=== PATIENT | female | born 1965 | race Caucasian/White ===

== ENCOUNTER 2017-03-17 14:02 | Emergency (ER) | payer BC ==
--- NOTE | 2017-03-17 15:04 | EDM.PDOC ---
[id number]: PAINS DOWN BACK AROUND TO FRONT OF RT LEG Time Seen by Provider: 03/17/17 15:04 Source of Information: Reports: Patient, Old records, RN, RN notes reviewed History Limitations: Reports: No limitations - History of Present Illness INITIAL COMMENTS - FREE TEXT/NARRATIVE: Complaining of low back pain without injury. Onset about 1 week ago[address] Patient saw Dr. Guzman in clinic and had x-ray and treated with Tramadol without relief. Pain radiates down front of right thigh to the knee. Denies loss of bowel or bladder control, saddle numbness or lower extremity weakness. Quality: Reports: Ache Severity: severe Improves with: Reports: None Worsens with: Reports: None Associated Symptoms: Reports: Denies symptoms - Related Data Allergies/ADRs: Allergies Allergy/AdvReac Type Severity Reaction Status Date / Time codeine AdvReac Unknown Nausea and Verified 03/17/17 14:21 Vomiting Home Meds: Home Meds Glucosamine Sulfate 2KCl [Glucosamine] 1,000 mg PO BID 06/07/14 [History] Lisinopril 20 mg PO BID 11/27/15 [History] NIFEdipine [Procardia XL] 30 mg PO DAILY 09/07/16 [History] Ca Carbonate/Vitamin D3/Vit K [Calcium + D Soft Chewable Tab] 1 each PO DAILY [History] Insulin Glarg,Human.Rec.Analog [Lantus] 28 unit SQ DAILY 03/17/17 [History] traMADol [Ultram] 50 mg PO Q8H 03/17/17 [History] Past Medical History HEENT History: Reports: Impaired vision Other HEENT History: wears glasses Cardiovascular History: Reports: Hypertension Respiratory History: Reports: None Gastrointestinal History: Reports: None Genitourinary History: Reports: Pyelonephritis 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 Musculoskeletal History: Reports: Arthritis Neurological History: Reports: None Psychiatric History: Reports: None Endocrine/Metabolic History: Reports: None Hematologic History: Reports: None Immunologic History: Reports: None Oncologic (Cancer) History: Reports: None Dermatologic History: Reports: None - Infectious Disease History Infectious Disease History: Reports: Chicken pox - Past Surgical History Head Surgeries/Procedures: Reports: None Social & Family History - Family History Family Medical History: Noncontributory - Tobacco Use Smoking Status *Q: Never Smoker Years of Tobacco use: 28 Used Tobacco, but Quit: Yes Month Tobacco Last Used: 5 years Second Hand Smoke Exposure: No - Caffeine Use Caffeine Use: Reports: Soda - Alcohol Use Days Per Week of Alcohol Use: 0 - Recreational Drug Use Recreational Drug Use: No - Living Situation & Occupation Living situation: Reports: , with family Occupation: employed ED ROS GENERAL - Review of Systems Review Of Systems: ROS reveals no pertinent complaints other than HPI. ED EXAM,LOWER BACK PAIN/INJURY - Physical Exam Exam: See Below Exam Limited By: No limitations General Appearance: obese Neck: full range of motion Respiratory/Chest: no respiratory distress, lungs clear, normal breath sounds, no accessory muscle use, chest non-tender Cardiovascular: normal peripheral pulses, regular rate, rhythm, no edema, no gallop, no JVD, no murmur, no rub GI/Abdominal: other (benign obese abdomen) Back Exam: other (decreased lumbar ROM. Paraspinal lumbar tenderness with muscle spasms. ) Neurological: alert, normal mood/affect, normal dorsiflexion, CN II-XII intact, normal plantar flexion, normal gait, normal reflexes, no motor/sensory deficits , oriented x 3 Psychiatric: normal affect, normal mood Skin Exam: Warm, Dry, Intact, Normal color, No rash Course - Vital Signs Last Recorded V/S: Last Vital Signs Temp 36.6 C 03/17/17 15:06 Pulse 98 03/17/17 15:06 Resp 16 03/17/17 15:06 BP 106/55 L 03/17/17 15:06 Pulse Ox 100 03/17/17 15:06 - Orders/Labs/Meds Meds: Medications Discontinued Medications Generic Name Dose Route Start Last Admin Trade Name Priya PRN Reason Stop Dose Admin Hydrocodone Bitart/Acetaminophen 1 tab 03/17/17 15:14 03/17/17 15:29 Jackson 325-10 Mg PO 03/17/17 15:15 1 tab ONETIME ONE Administration Dexamethasone 8 mg 03/17/17 15:13 03/17/17 15:29 Dexamethasone IM 03/17/17 15:14 8 mg ONETIME ONE Administration Gabapentin 300 mg 03/17/17 15:13 03/17/17 15:37 Neurontin PO 03/17/17 15:14 300 mg ONETIME ONE Administration Departure - Departure Time of Disposition: 16:03 Disposition: Home, Self-Care 01 Condition: fair Clinical Impression: Acute right lumbar radiculopathy Instructions: Lumbosacral Radiculopathy Referrals: Jordy Guzman MD [Primary Care Provider] - Forms: ED Department Discharge Additional Instructions: Gabapentin 300mg *do not drive or work while under the influence of this medication. Decadron 4mg. Follow with Dr. Guzman in the next 2 or 3 days for recheck.
[2017-03-17 15:07] VITALS: BP 106/55
[2017-03-17] MEDS ORDERED: Dexamethasone 4 MG/ML SDV IM ONE (15:13)
[2017-03-17] MEDS ORDERED: Gabapentin 300 MG Cap PO ONE (15:13)
[2017-03-17] MEDS ORDERED: Acetaminophen/HYDROcodone 325-10 MG Tab PO ONE (15:14)
== END 2017-03-17 16:15 | disposition home or self-care (01) ==
LOC: DL.ED 14:02
DX: M54.16 Radiculopathy, lumbar region (principal); I10 Essential (primary) hypertension; M19.90 Unspecified osteoarthritis, unspecified site; Z88.6 Allergy status to analgesic agent
CPT/HCPCS: 96372; 99283; A9270; J1100

== ENCOUNTER 2017-11-16 05:07 | Emergency (ER) | payer BC ==
[2017-11-16] MEDS ORDERED: Ondansetron 4 MG Tab.DIS PO ONE (05:08)
[2017-11-16] MEDS ORDERED: Sodium Chloride 0.9% 1,000 ML IV ONE (05:19)
[2017-11-16] MEDS ORDERED: Ondansetron 4 MG/2 ML SDV IV ONE (05:23)
--- NOTE | 2017-11-16 05:53 | EDM.PDOC ---
ED HPI GENERAL MEDICAL PROBLEM - General Chief Complaint: Gastrointestinal Problem Stated Complaint: FLU [id number] Time Seen by Provider: 11/16/17 05:20 Source of Information: Reports: Patient History Limitations: Reports: No Limitations - History of Present Illness INITIAL COMMENTS - FREE TEXT/NARRATIVE: c/o nausea and vomiting since yesterday 2:30pm. Estimates at least 20 times. Diarrhea yesterday, none since last jacob. Diabetic, has not checked blood sugars , Feeling achy Denies fever or chills. Abdominal Pain Score (Numeric/FACES): 6 - Related Data Allergies Allergy/AdvReac Type Severity Reaction Status Date / Time codeine AdvReac Unknown Nausea and Verified 11/16/17 05:20 Vomiting Home Meds: Home Meds Glucosamine Sulfate 2KCl [Glucosamine] 1,000 mg PO BID 06/07/14 [History] Lisinopril 20 mg PO BID 11/27/15 [History] NIFEdipine [Procardia XL] 30 mg PO DAILY 09/07/16 [History] Ca Carbonate/Vitamin D3/Vit K [Calcium + D Soft Chewable Tab] 1 each PO DAILY [History] Insulin Glarg,Human.Rec.Analog [Lantus] 28 unit SQ DAILY 03/17/17 [History] traMADol [Ultram] 50 mg PO Q8H 03/17/17 [History] Gabapentin [Neurontin] 300 mg PO TID 11/16/17 [History] Past Medical History HEENT History: Reports: Impaired Vision Other HEENT History: wears glasses Cardiovascular History: Reports: Hypertension Respiratory History: Reports: None Gastrointestinal History: Reports: None Genitourinary History: Reports: Pyelonephritis [employer]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 Musculoskeletal History: Reports: Arthritis Neurological History: Reports: None Psychiatric History: Reports: None Endocrine/Metabolic History: Reports: None Hematologic History: Reports: None Immunologic History: Reports: None Oncologic (Cancer) History: Reports: None Dermatologic History: Reports: None - Infectious Disease History Infectious Disease History: Reports: Chicken Pox - Past Surgical History Head Surgeries/Procedures: Reports: None Social & Family History - Family History Family Medical History: Noncontributory - Tobacco Use Smoking Status *Q: Never Smoker Years of Tobacco use: 28 Used Tobacco, but Quit: Yes Month Tobacco Last Used: 5 years Second Hand Smoke Exposure: No - Caffeine Use Caffeine Use: Reports: Soda - Alcohol Use Days Per Week of Alcohol Use: 0 - Recreational Drug Use Recreational Drug Use: No - Living Situation & Occupation Living situation: Reports: , with Family Occupation: Employed ED ROS GENERAL - Review of Systems Review Of Systems: See Below Constitutional: Reports: Malaise. Denies: Fever, Chills HEENT: Reports: No Symptoms Respiratory: Reports: No Symptoms Cardiovascular: Reports: No Symptoms GI/Abdominal: Reports: Diarrhea, Nausea, Vomiting : Reports: No Symptoms Musculoskeletal: Reports: Other (myalgia) Skin: Reports: No Symptoms Neurological: Reports: No Symptoms ED EXAM, GI/ABD - Physical Exam Exam: See Below Exam Limited By: No Limitations General Appearance: Alert, Mild Distress, Obese Eyes: Bilateral: EOMI Ears: Normal External Exam, Normal TMs Nose: Normal Inspection Throat/Mouth: Normal Inspection, Normal Oropharynx Head: Atraumatic, Normocephalic Neck: Normal Inspection Respiratory/Chest: No Respiratory Distress Cardiovascular: Normal Peripheral Pulses, Regular Rate, Rhythm GI/Abdominal Exam: Normal Bowel Sounds, Soft, Non-Tender Back Exam: Normal Inspection Extremities: Normal Inspection, Normal Range of Motion Neurological: Alert, Oriented, Normal Cognition Psychiatric: Normal Affect, Normal Mood Course - Vital Signs Last Recorded V/S: Last Vital Signs Temp 99.8 F 11/16/17 06:29 Pulse 101 H 11/16/17 06:29 Resp 16 11/16/17 06:29 BP 121/64 11/16/17 06:29 Pulse Ox 95 11/16/17 06:29 - Orders/Labs/Meds Labs: Laboratory Tests 11/16/17 11/16/17 11/16/17 Range/Units 05:25 05:25 05:38 WBC 8.8 (5.0-10.0) 10^3/uL RBC 4.98 (4.2-5.4) 10^6/uL Hgb 14.1 (12.0-16.0) g/dL Hct 41.6 (37.0-47.0) % MCV 83.5 (80-100) fL MCH 28.3 (27.0-34.0) pg MCHC 33.9 (33.0-35.0) g/dL Plt Count 143 L (150-450) 10^3/uL Neut % (Auto) 95.5 H (42.2-75.2) % Lymph % (Auto) 2.3 L (20.5-50.1) % [place] % (Auto) 2.1 (2-8) % Eos % (Auto) 0.0 L (1.0-3.0) % Baso % (Auto) 0.1 (0.0-1.0) % Sodium 135 (135-145) mmol/L Potassium 4.0 (3.6-5.0) mmol/L Chloride 101 (101-111) mmol/L Carbon Dioxide 23.0 (21.0-31.0) mmol/L Anion Gap 15.0 BUN 29 H (7-18) mg/dL Creatinine 0.7 (0.6-1.3) mg/dL Est Cr Clr Drug Dosing 79.34 mL/min Estimated GFR (MDRD) > 60 BUN/Creatinine Ratio 41.42 Glucose 244 H (74-105) mg/dL Calcium 9.4 (8.4-10.2) mg/dl Total Bilirubin 1.2 H (0.2-1.0) mg/dL AST 24 (10-42) IU/L ALT 19 (10-60) IU/L Alkaline Phosphatase 74 (42-121) IU/L Total Protein 7.3 (6.7-8.2) g/dl Albumin 4.3 (3.2-5.5) g/dl Globulin 3.0 Albumin/Globulin Ratio 1.43 Urine Color Yellow (YELLOW) Urine Appearance Clear (CLEAR) Urine pH 7.5 (5.0-9.0) Ur Specific [place] 1.015 (1.005-1.030) Urine Protein 100 H (NEGATIVE) Urine Glucose (UA) 100 H (NEGATIVE) Urine Ketones 15 H (NEGATIVE) Urine Occult Blood Negative (NEGATIVE) Urine Nitrite Negative (NEGATIVE) Urine Bilirubin Negative (NEGATIVE) Urine Urobilinogen 0.2 (0.2-1.0) mg/dL Ur Leukocyte Esterase Trace H (NEGATIVE) Urine RBC 0-5 /HPF Urine WBC 10-20 H (0-5/HPF) /HPF Ur Epithelial Cells Few /HPF Urine Bacteria Moderate H (0-FEW/HPF) /HPF Ketones Negative Meds: Medications Discontinued Medications Generic Name Dose Route Start Last Admin Trade Name Freq PRN Reason Stop Dose Admin Famotidine 20 mg 11/16/17 06:22 11/16/17 06:32 Pepcid IVPUSH 11/16/17 06:23 20 mg ONETIME ONE Administration Sodium Chloride 1,000 mls @ 999 mls/hr 11/16/17 05:19 11/16/17 05:26 Normal Saline IV 11/16/17 06:19 999 mls/hr .BOLUS ONE Administration Ondansetron HCl 4 mg 11/16/17 05:23 11/16/17 05:27 Zofran IV 11/16/17 05:24 4 mg ONETIME ONE Administration - Re-Assessments/Exams Free Text/Narrative Re-Assessment/Exam: 11/16/17 06:34 No episodes of vomiting, Reports feeling better, Departure - Departure Time of Disposition: 06:34 Disposition: Home, Self-Care 01 Condition: Fair Clinical Impression: Gastroenteritis, Dehydration - Discharge Information Instructions: Dehydration, Adult, [id number] Forms: ED Department Discharge Additional Instructions: rest few small sips water and if tolerating then gradual increase in amount, advance diet as tolerated Monitor blood sugars Follow up as needed
[2017-11-16 06:17] LABS: CHLORIDE,CL 101 mmol/L (101-111); SODIUM,NA 135 mmol/L (135-145)
[2017-11-16] MEDS ORDERED: Famotidine 20 MG/2 ML SDV IVPUSH ONE (06:22)
[2017-11-16 06:30] VITALS: BP 121/64
[2017-11-16] MEDS ORDERED: Ondansetron 4 MG Tab.DIS ONE (06:35)
== END 2017-11-16 06:44 | disposition home or self-care (01) ==
LOC: DL.ED 05:07
DX: K52.9 Noninfective gastroenteritis and colitis, unspecified (principal); E86.0 Dehydration; I10 Essential (primary) hypertension; Z88.5 Allergy status to narcotic agent; Z79.899 Other long term (current) drug therapy; Z79.4 Long term (current) use of insulin
CPT/HCPCS: 36415; 80053; 81001; 82009; 85025; 87804; 96361; 96374; 96375; 99284; J2405; J7030; A9270-GY; S0028

== ENCOUNTER 2018-05-01 12:09 | Emergency (ER) | payer OTHER, BC ==
--- NOTE | 2018-05-01 14:29 | CR ---
Clinical history: 52-year-old obese female injured left knee in a fall. Pain. Interpretation: Chondromalacia patella and marginal spur formation dorsal aspect of the patella. Asymmetric narrowing of the medial joint compartment with associated bony eburnation and hypertrophic marginal/intercondylar tibial spine spurs. No significant suprapatellar bursal effusion and no sign of acute left knee fracture, dislocation or radiopaque loose joint body. CONCLUSION: Osteoarthritis. No acute fracture left knee.
--- NOTE | 2018-05-01 14:34 | EDM.PDOC ---
ED HPI GENERAL MEDICAL PROBLEM - General Chief Complaint: Lower Extremity Injury/Pain Stated Complaint: W/COMP, LT KNEE, SOB Time Seen by Provider: 05/01/18 13:35 Source of Information: Reports: Patient, RN, RN Notes Reviewed History Limitations: Reports: No Limitations - History of Present Illness INITIAL COMMENTS - FREE TEXT/NARRATIVE: Patient works at [employer]. She fell on her left knee. She was short of breath prior to arrival. She did not hit her head. No other complaints. She is walking with a cane. Onset: Today Location: Reports: Lower Extremity, Left Quality: Reports: Ache Severity: Severe Improves with: Reports: None Worsens with: Reports: None Associated Symptoms: Reports: No Other Symptoms Left Knee Pain Score (Numeric/FACES): 3 - Related Data Allergies Allergy/AdvReac Type Severity Reaction Status Date / Time codeine AdvReac Unknown Nausea and Verified 11/16/17 05:20 Vomiting Home Meds: Home Meds Glucosamine Sulfate 2KCl [Glucosamine] 1,000 mg PO BID 06/07/14 [History] Lisinopril 20 mg PO BID 11/27/15 [History] NIFEdipine [Procardia XL] 30 mg PO DAILY 09/07/16 [History] Ca Carbonate/Vitamin D3/Vit K [Calcium + D Soft Chewable Tab] 1 each PO DAILY [History] Insulin Glarg,Human.Rec.Analog [Lantus] 28 unit SQ DAILY 03/17/17 [History] traMADol [Ultram] 50 mg PO Q8H 03/17/17 [History] Gabapentin [Neurontin] 300 mg PO TID 11/16/17 [History] Past Medical History HEENT History: Reports: Impaired Vision Other HEENT History: wears glasses Cardiovascular History: Reports: Hypertension Respiratory History: Reports: None Gastrointestinal History: Reports: None Genitourinary History: Reports: Pyelonephritis [employer] History: Reports: None Musculoskeletal History: Reports: Arthritis Neurological History: Reports: None Psychiatric History: Reports: Anxiety, Depression Endocrine/Metabolic History: Reports: Diabetes, Type II Hematologic History: Reports: None Immunologic History: Reports: None Oncologic (Cancer) History: Reports: None Dermatologic History: Reports: None - Infectious Disease History Infectious Disease History: Reports: Chicken Pox - Past Surgical History Head Surgeries/Procedures: Reports: None HEENT Surgical History: Reports: Adenoidectomy, Tonsillectomy Female Surgical History: Reports: Section Social & Family History - Family History Family Medical History: Noncontributory - Tobacco Use Smoking Status *Q: Never Smoker - Caffeine Use Caffeine Use: Reports: Soda - Recreational Drug Use Recreational Drug Use: No - Living Situation & Occupation Living situation: Reports: , with Family Occupation: Employed Review of Systems - Review of Systems Review Of Systems: ROS reveals no pertinent complaints other than HPI. ED EXAM, GENERAL - Physical Exam Exam: See Below Exam Limited By: No Limitations General Appearance: Alert, WD/WN, No Apparent Distress Eye Exam: Bilateral Eye: Normal Inspection Ears: Normal External Exam, Normal Canal, Hearing Grossly Normal, Normal TMs Nose: Normal Inspection, Normal Mucosa, No Blood Throat/Mouth: Normal Inspection, Normal Lips, Normal Teeth, Normal Gums, Normal Oropharynx, Normal Voice, No Airway Compromise Head: Atraumatic, Normocephalic Neck: Normal Inspection, Supple, Non-Tender, Full Range of Motion Respiratory/Chest: No Respiratory Distress, Lungs Clear, Normal Breath Sounds, No Accessory Muscle Use, Chest Non-Tender Cardiovascular: Normal Peripheral Pulses, Regular Rate, Rhythm, No Edema, No Gallop, No JVD, No Murmur, No Rub GI/Abdominal: Normal Bowel Sounds, Soft, Non-Tender, No Organomegaly, No Distention, No Abnormal Bruit, No Mass (Female) Exam: Deferred Rectal (Female) Exam: Deferred Back Exam: Normal Inspection, Full Range of Motion, NT Neurological: Alert, Oriented, CN II-XII Intact, Normal Cognition, Normal Gait, Normal Reflexes, No Motor/Sensory Deficits Psychiatric: Normal Affect, Normal Mood Skin Exam: Warm, Dry, Intact, Normal Color, No Rash Lymphatic: No Adenopathy Course - Vital Signs Last Recorded V/S: Last Vital Signs Temp 97.4 F 05/01/18 14:34 Pulse 80 05/01/18 14:34 Resp 18 05/01/18 14:34 BP 122/55 L 05/01/18 14:34 Pulse Ox 97 05/01/18 14:34 - Radiology Interpretation Free Text/Narrative:: X-ray left knee: Osteoarthritis. No acute fracture left knee. See rad report. Departure - Departure Time of Disposition: 14:29 Disposition: Home, Self-Care 01 Condition: Fair Clinical Impression: Arthritis of left knee Fall Qualifiers: Encounter type: initial encounter Qualified Code(s): W19.XXXA - Unspecified fall, initial encounter - Discharge Information Instructions: Osteoarthritis Referrals: Jordy Guzman MD [Primary Care Provider] - Forms: ED Department Discharge Additional Instructions: May use ibuprofen as directed for pain Elevate, alternate heat and ice as tolerated Use cane for walking Follow up with your primary care facility if no improvement
[2018-05-01 14:35] VITALS: BP 122/55
== END 2018-05-01 14:50 | disposition home or self-care (01) ==
LOC: DL.ED 12:09
DX: M17.12 Unilateral primary osteoarthritis, left knee (principal); I10 Essential (primary) hypertension; E11.9 Type 2 diabetes mellitus without complications; F32.9 Major depressive disorder, single episode, unspecified; F41.9 Anxiety disorder, unspecified; Z88.5 Allergy status to narcotic agent; Z79.899 Other long term (current) drug therapy; Z79.4 Long term (current) use of insulin; W18.30XA Fall on same level, unspecified, initial encounter
CPT/HCPCS: 73564-LT; 99282

== ENCOUNTER 2018-11-26 16:14 | Emergency (ER) | payer BC ==
[2018-11-26 16:24] VITALS: BP 125/63
--- NOTE | 2018-11-26 16:44 | CR ---
Clinical history: 53-year-old female chest pain and shortness of breath. Dilatation: No acute new cardiopulmonary abnormality since 08 October 2018 comparison film. Normal cardiac silhouette. No cephalization of flow, signs of alveolar edema or dependent pleural effusion. No new lung mass, hilar lymphadenopathy or focal lobar pneumonia. No atelectasis/collapse. No pneumothorax or free subdiaphragmatic air. CONCLUSION: Negative exam.
[2018-11-26] MEDS ORDERED: Lactated Ringers 1,000 ML IV ONE (16:47)
[2018-11-26] MEDS ORDERED: Aspirin 81 MG Tab.Chew PO ONE (16:53)
[2018-11-26 16:56] LABS: ANION GAP 17.1; CHLORIDE,CL 99 mmol/L (101-111); SODIUM,NA 137 mmol/L (135-145)
[2018-11-26] MEDS: Sodium Chloride 0.9% 10 ML Syringe FLUSH PRN ×2 (16:59→18:04)
[2018-11-26] MEDS ORDERED: Morphine 2 MG/ML Syringe IVPUSH ONE (17:38)
[2018-11-26] MEDS ORDERED: GI Cocktail Oral Solution 30 ML PO ONE (17:52)
[2018-11-26] MEDS ORDERED: Iopamidol 755 Mg/ML 100 ML Bottle IVPUSH ONE (19:24)
--- NOTE | 2018-11-26 21:22 | EDM.PDOC ---
<Tono English - Last Filed: 11/26/18 21:18> ED HPI GENERAL MEDICAL PROBLEM - General Chief Complaint: Chest Pain Stated Complaint: PAINS IN CHEST, SOB, TIGHTENING Time Seen by Provider: 11/26/18 16:40 chest Pain Score (Numeric/FACES): 7 headache Pain Score (Numeric/FACES): 4 - Related Data Allergies Allergy/AdvReac Type Severity Reaction Status Date / Time codeine AdvReac Unknown Nausea and Verified 11/26/18 17:02 Vomiting Home Meds: Home Meds Glucosamine Sulfate 2KCl [Glucosamine] 1,000 mg PO BID 06/07/14 [History] NIFEdipine [Procardia XL] 30 mg PO DAILY 09/07/16 [History] Ca Carbonate/Vitamin D3/Vit K [Calcium + D Soft Chewable Tab] 1 each PO DAILY [History] Insulin Glarg,Human.Rec.Analog [Lantus] 28 unit SQ DAILY 03/17/17 [History] Gabapentin [Neurontin] 300 mg PO TID 11/16/17 [History] DULoxetine HCl [Duloxetine HCl] 60 mg PO DAILY 10/08/18 [History] Liraglutide [Victoza] 6 units SQ DAILY 10/08/18 [History] Lisinopril 20 mg PO DAILY 10/08/18 [History] atorvaSTATin Calcium [Atorvastatin Calcium] 10 mg PO DAILY 10/08/18 [History] Past Medical History HEENT History: Reports: Impaired Vision Other HEENT History: wears glasses Cardiovascular History: Reports: High Cholesterol, Hypertension Respiratory History: Reports: None Gastrointestinal History: Reports: None Genitourinary History: Reports: Pyelonephritis 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 Musculoskeletal History: Reports: Arthritis Neurological History: Reports: Neuropathy, Peripheral Psychiatric History: Reports: Anxiety, Depression Endocrine/Metabolic History: Reports: Diabetes, Type II, Obesity/BMI 30+ Hematologic History: Reports: None Immunologic History: Reports: None Oncologic (Cancer) History: Reports: None Dermatologic History: Reports: None - Infectious Disease History Infectious Disease History: Reports: Chicken Pox - Past Surgical History Head Surgeries/Procedures: Reports: None HEENT Surgical History: Reports: Adenoidectomy, Tonsillectomy Cardiovascular Surgical History: Reports: None Female Surgical History: Reports: Section Social & Family History - Family History Family Medical History: Noncontributory - Tobacco Use Smoking Status *Q: Never Smoker - Caffeine Use Caffeine Use: Reports: Soda - Recreational Drug Use Recreational Drug Use: No - Living Situation & Occupation Living situation: Reports: , with Family Occupation: Employed Course - Vital Signs Last Recorded V/S: Last Vital Signs Temp 36.4 C 11/26/18 16:22 Pulse 107 H 11/26/18 16:22 Resp 20 11/26/18 16:22 BP 125/63 11/26/18 16:22 Pulse Ox 100 11/26/18 16:22 - Orders/Labs/Meds Orders: Active Orders 24 hr Category Date Time Status EKG 12 Lead [EKG Documentation Completion] [] URGENT Care 11/26/18 16:21 Active EKG 12 Lead [EKG Documentation Completion] [] URGENT Care 11/26/18 20:31 Active Peripheral IV Care [] . DIRECTED Care 11/26/18 16:22 Active Peripheral IV Insertion Adult [OM.PC] Stat Oth 11/26/18 16:21 Ordered Labs: Laboratory Tests 11/26/18 11/26/18 11/26/18 Range/Units 16:29 16:29 16:29 WBC 6.1 (5.0-10.0) 10^3/uL RBC 4.35 (4.2-5.4) 10^6/uL Hgb 13.0 (12.0-16.0) g/dL Hct 38.6 (37.0-47.0) % MCV 88.7 (80-100) fL MCH 29.9 (27.0-34.0) pg MCHC 33.7 (33.0-35.0) g/dL Plt Count 160 (150-450) 10^3/uL Neut % (Auto) 73.6 (42.2-75.2) % Lymph % (Auto) 18.4 L (20.5-50.1) % Rosebud % (Auto) 7.8 (2-8) % Eos % (Auto) 0.0 L (1.0-3.0) % Baso % (Auto) 0.2 (0.0-1.0) % D-Dimer, Quantitative < 100 (0-400) ng/mL Sodium 137 (135-145) mmol/L Potassium 4.1 (3.6-5.0) mmol/L Chloride 99 L (101-111) mmol/L Carbon Dioxide 25.0 (21.0-31.0) mmol/L Anion Gap 17.1 BUN 22 H (7-18) mg/dL Creatinine 1.1 (0.6-1.3) mg/dL Est Cr Clr Drug Dosing 49.90 mL/min Estimated GFR (MDRD) 52 BUN/Creatinine Ratio 20.00 Glucose 123 H (74-105) mg/dL Calcium 9.3 (8.4-10.2) mg/dl Total Bilirubin 0.9 (0.2-1.0) mg/dL AST 21 (10-42) IU/L ALT 22 (10-60) IU/L Alkaline Phosphatase 85 (42-121) IU/L Troponin I < 0.02 (0.00-0.02) ng/ml Total Protein 6.7 (6.7-8.2) g/dl Albumin 4.1 (3.2-5.5) g/dl Globulin 2.6 Albumin/Globulin Ratio 1.58 11/26/18 Range/Units 20:37 WBC (5.0-10.0) 10^3/uL RBC (4.2-5.4) 10^6/uL Hgb (12.0-16.0) g/dL Hct (37.0-47.0) % MCV (80-100) fL MCH (27.0-34.0) pg MCHC (33.0-35.0) g/dL Plt Count (150-450) 10^3/uL Neut % (Auto) (42.2-75.2) % Lymph % (Auto) (20.5-50.1) % Rosebud % (Auto) (2-8) % Eos % (Auto) (1.0-3.0) % Baso % (Auto) (0.0-1.0) % D-Dimer, Quantitative (0-400) ng/mL Sodium (135-145) mmol/L Potassium (3.6-5.0) mmol/L Chloride (101-111) mmol/L Carbon Dioxide (21.0-31.0) mmol/L Anion Gap BUN (7-18) mg/dL Creatinine (0.6-1.3) mg/dL Est Cr Clr Drug Dosing mL/min Estimated GFR (MDRD) BUN/Creatinine Ratio Glucose (74-105) mg/dL Calcium (8.4-10.2) mg/dl Total Bilirubin (0.2-1.0) mg/dL AST (10-42) IU/L ALT (10-60) IU/L Alkaline Phosphatase (42-121) IU/L Troponin I < 0.02 (0.00-0.02) ng/ml Total Protein (6.7-8.2) g/dl Albumin (3.2-5.5) g/dl Globulin Albumin/Globulin Ratio Meds: Medications Discontinued Medications Generic Name Dose Route Start Last Admin Trade Name Freq PRN Reason Stop Dose Admin Al Hydroxide/Mg Hydroxide 30 ml 11/26/18 17:52 11/26/18 18:02 Gi Cocktail PO 11/26/18 17:53 30 ml ONETIME ONE Administration Aspirin 324 mg 11/26/18 16:53 11/26/18 16:56 Aspirin PO 11/26/18 16:54 324 mg ONETIME ONE Administration Lactated Ringer's 1,000 mls @ 1,000 mls/hr 11/26/18 16:47 11/26/18 16:56 Ringers, Lactated IV 11/26/18 17:46 1,000 mls/hr .BOLUS ONE Administration Iopamidol 100 ml 11/26/18 19:24 11/26/18 19:28 Isovue-370 (76%) IVPUSH 11/26/18 19:25 100 ml ONETIME ONE Administration Morphine Sulfate 2 mg 11/26/18 17:38 11/26/18 18:02 Morphine IVPUSH 11/26/18 17:39 2 mg ONETIME ONE Administration Sodium Chloride 10 ml 11/26/18 16:22 11/26/18 18:04 Saline Flush FLUSH 10 ml ASDIRECTED PRN Administration Keep Vein Open - Re-Assessments/Exams Free Text/Narrative Re-Assessment/Exam: 11/26/18 21:19 results discussed with pt who is feeling much better now. likes to go home. did notice GI cocktail produced most effect. Departure - Departure Time of Disposition: 21:19 Disposition: Home, Self-Care 01 Condition: Good Clinical Impression: Atypical chest pain GERD (gastroesophageal reflux disease) Qualifiers: Esophagitis presence: with esophagitis Qualified Code(s): K21.0 - Gastro- esophageal reflux disease with esophagitis Instructions: Food Choices for Gastroesophageal Reflux Disease, Adult Referrals: PCP,None [Primary Care Provider] - Forms: ED Department Discharge Additional Instructions: 1) recheck if there is any change or concern 2) follow up with family doctor for pulmonary nodule follow up - My Orders Last 24 Hours: My Active Orders 11/26/18 16:21 EKG 12 Lead [EKG Documentation Completion] [RC] URGENT Peripheral IV Insertion Adult [OM.PC] Stat 11/26/18 16:22 Peripheral IV Care [RC] . DIRECTED - Assessment/Plan Last 24 Hours: My Active Orders 11/26/18 16:21 EKG 12 Lead [EKG Documentation Completion] [RC] URGENT Peripheral IV Insertion Adult [OM.PC] Stat 11/26/18 16:22 Peripheral IV Care [RC] . DIRECTED <Salas Lenz - Last Filed: 11/27/18 11:52> ED HPI GENERAL MEDICAL PROBLEM - History of Present Illness INITIAL COMMENTS - FREE TEXT/NARRATIVE: patient comes emergency department today with complaints of tightness in her chest and difficulty breathing. Just prior to arrival the patient was going to get into her car when all of a sudden she had some difficulty breathing and tightness in her chest. No syncope. No lightheadedness. No palpitations. She feels very cold and clammy. No fever no chills. No cough or congestion. No abdominal pain. NAUSEA NO VOMITING> She feels very fatigued and tired. She has little energy. No hematuria dysuria or urinary frequency. She is not a smoker. She has not had any sedentary lifestyle recently to include riding in a car or plane for an extended period of time. 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 ED ROS GENERAL - Review of Systems Review Of Systems: ROS reveals no pertinent complaints other than HPI. ED EXAM, GENERAL - Physical Exam Exam: See Below Exam Limited By: No Limitations General Appearance: Alert, WD/WN Nose: Normal Inspection, Normal Mucosa Throat/Mouth: Normal Inspection, Normal Lips, Normal Oropharynx Head: Atraumatic, Normocephalic Neck: Normal Inspection Respiratory/Chest: No Respiratory Distress, Lungs Clear, Normal Breath Sounds, No Accessory Muscle Use, Chest Non-Tender Cardiovascular: Normal Peripheral Pulses, Regular Rate, Rhythm, No Murmur Peripheral Pulses: 2+: Radial (L), Radial (R), Posterior Tibial (L), Posterior Tibial (R), Dorsalis Pedis (L), Dorsalis Pedis (R) GI/Abdominal: Normal Bowel Sounds, Soft, Non-Tender, No Organomegaly Back Exam: Normal Inspection Extremities: Normal Inspection, Normal Range of Motion, Non-Tender, No Pedal Edema, Normal Capillary Refill Neurological: Alert, Oriented, CN II-XII Intact, Normal Cognition, Normal Reflexes, No Motor/Sensory Deficits Psychiatric: Normal Mood, Flat Affect Skin Exam: Intact, No Rash, Cool, Diaphoretic, Pallor Lymphatic: No Adenopathy EKG INTERPRETATION EKG Date: 11/26/18 Time: 16:21 Rhythm: NSR Rate (Beats/Min): 84 Pablo: Normal P-Wave: Present QRS: Normal ST-T: Normal QT: Normal Course - Re-Assessments/Exams Free Text/Narrative Re-Assessment/Exam: 11/26/18 nitial EKG was negative. Although with her pain just developing I will repeat a couple more EKGs to ensure that she does not develop any changes. Repeat EKG at [address] elevation or depression and is unchanged from the previous one. Although she does not want to take the aspirin due to her history of thrombocytopenia I think with her clinical presentation and physical findings that one dose of aspirin is paramount at this time and she is comfortable with that plan and her platelets are appropriate. I am able to try any nitroglycin she is has a blood pressure in the 100s. Her initial troponin is negative as well as her d-dimer. She was given a GI cocktail with about 50% improvement in her chest tightness. She was also given some morphine and felt much better. Despite her negative d-dimer with her vital signs and complaints and physical exam I did complete a CT PE that was negative for any pulmonary embolism. Repeart troponin was negative and care transfer to DR. English who eventually discharged the patient.
== END 2018-11-26 21:40 | disposition home or self-care (01) ==
LOC: DL.ED 16:14
DX: K21.0 Gastro-esophageal reflux disease with esophagitis (principal); R07.89 Other chest pain; E78.00 Pure hypercholesterolemia, unspecified; I10 Essential (primary) hypertension; E11.42 Type 2 diabetes mellitus with diabetic polyneuropathy; Z79.4 Long term (current) use of insulin; Z88.5 Allergy status to narcotic agent; Z79.899 Other long term (current) drug therapy
CPT/HCPCS: 36415; 71045; 71260; 80053; 84484; 85025; 85379; 93005; 96361; 96374; 99285; A9270; J2270; J7120; Q9967

== ENCOUNTER 2018-12-28 10:18 | Emergency (ER) | payer BC ==
[2018-12-28 10:25] VITALS: BP 129/41
[2018-12-28] MEDS ORDERED: predniSONE 20 MG Tab PO ONE (10:31)
--- NOTE | 2018-12-28 10:40 | EDM.PDOC ---
ED HPI GENERAL MEDICAL PROBLEM - General Chief Complaint: Neuro Symptoms/Deficits Stated Complaint: FACE NUMB Time Seen by Provider: 12/28/18 10:30 Source of Information: Reports: Patient History Limitations: Reports: No Limitations - History of Present Illness INITIAL COMMENTS - FREE TEXT/NARRATIVE: This 53 yo female patient reports to the ED with right sided facial numbness/ weakness that started yesterday at 1100. The patient reports she does not have any other symptoms. The patient reports no coordination or balance issues at this time. Onset Date: 12/27/18 Onset Time: 11:00 Duration: Constant Location: Reports: Face (right sided) Quality: Reports: Other Severity: Severe Improves with: Reports: None Worsens with: Reports: None Associated Symptoms: Reports: No Other Symptoms - Related Data Allergies Allergy/AdvReac Type Severity Reaction Status Date / Time codeine AdvReac Unknown Nausea and Verified 11/26/18 17:02 Vomiting Home Meds: Home Meds Glucosamine Sulfate 2KCl [Glucosamine] 1,000 mg PO BID 06/07/14 [History] NIFEdipine [Procardia XL] 30 mg PO DAILY 09/07/16 [History] Ca Carbonate/Vitamin D3/Vit K [Calcium + D Soft Chewable Tab] 1 each PO DAILY [History] Insulin Glarg,Human.Rec.Analog [Lantus] 28 unit SQ DAILY 03/17/17 [History] Gabapentin [Neurontin] 300 mg PO TID 11/16/17 [History] DULoxetine HCl [Duloxetine HCl] 60 mg PO DAILY 10/08/18 [History] Liraglutide [Victoza] 6 units SQ DAILY 10/08/18 [History] Lisinopril 20 mg PO DAILY 10/08/18 [History] atorvaSTATin Calcium [Atorvastatin Calcium] 10 mg PO DAILY 10/08/18 [History] Past Medical History HEENT History: Reports: Impaired Vision Other HEENT History: wears glasses Cardiovascular History: Reports: High Cholesterol, Hypertension Respiratory History: Reports: None Gastrointestinal History: Reports: None Genitourinary History: Reports: Pyelonephritis 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 Musculoskeletal History: Reports: Arthritis Neurological History: Reports: Neuropathy, Peripheral Psychiatric History: Reports: Anxiety, Depression Endocrine/Metabolic History: Reports: Diabetes, Type II, Obesity/BMI 30+ Hematologic History: Reports: None Immunologic History: Reports: None Oncologic (Cancer) History: Reports: None Dermatologic History: Reports: None - Infectious Disease History Infectious Disease History: Reports: Chicken Pox - Past Surgical History Head Surgeries/Procedures: Reports: None HEENT Surgical History: Reports: Adenoidectomy, Tonsillectomy Cardiovascular Surgical History: Reports: None Female Surgical History: Reports: Section Social & Family History - Family History Family Medical History: Noncontributory - Tobacco Use Smoking Status *Q: Never Smoker - Caffeine Use Caffeine Use: Reports: Soda - Recreational Drug Use Recreational Drug Use: No - Living Situation & Occupation Living situation: Reports: , with Family Occupation: Employed ED ROS GENERAL - Review of Systems Review Of Systems: ROS reveals no pertinent complaints other than HPI. ED EXAM, NEURO - Physical Exam Exam: See Below Exam Limited By: No Limitations General Appearance: Alert, WD/WN, Moderate Distress Eye Exam: Bilateral Eye: EOMI, Normal Inspection, PERRL Ears: Normal External Exam, Normal Canal, Hearing Grossly Normal, Normal TMs Nose: Normal Inspection, Normal Mucosa, No Blood Throat/Mouth: Normal Inspection, Normal Lips, Normal Teeth, Normal Gums, Normal Oropharynx, Normal Voice, No Airway Compromise Head Exam: Other (right side facial numbness and weakness) Neck: Normal Inspection, Supple, Non-Tender, Full Range of Motion Respiratory/Chest: No Respiratory Distress, Lungs Clear, Normal Breath Sounds, No Accessory Muscle Use, Chest Non-Tender Cardiovascular: Normal Peripheral Pulses, Regular Rate, Rhythm, No Edema, No Gallop, No JVD, No Murmur, No Rub GI/Abdominal: Normal Bowel Sounds (Female) Exam: Deferred Rectal (Female) Exam: Deferred Neurological: Alert, Normal Mood/Affect, Normal Dorsiflexion, Oriented x 3, Other (right sided facial weakness (facial droop)) Back Exam: Normal Inspection, Full Range of Motion, NT Extremities: Normal Inspection, Normal Range of Motion, Non-Tender, No Pedal Edema, Normal Capillary Refill Psychiatric: Normal Affect, Normal Mood Skin Exam: Warm, Dry, Intact, Normal Color, No Rash Course - Vital Signs Last Recorded V/S: Last Vital Signs Temp 35.8 C 12/28/18 10:22 Pulse 98 12/28/18 10:22 Resp 16 12/28/18 10:22 BP 129/41 L 12/28/18 10:22 Pulse Ox 100 12/28/18 10:22 - Orders/Labs/Meds Meds: Medications Discontinued Medications Generic Name Dose Route Start Last Admin Trade Name Priya PRN Reason Stop Dose Admin Prednisone 60 mg 12/28/18 10:31 12/28/18 10:39 Prednisone PO 12/28/18 10:32 60 mg ONETIME ONE Administration Departure - Departure Time of Disposition: 10:35 Disposition: Home, Self-Care 01 Condition: Fair Clinical Impression: Amado palsy - Discharge Information *PRESCRIPTION DRUG MONITORING PROGRAM REVIEWED*: Not Applicable *COPY OF PRESCRIPTION DRUG MONITORING REPORT IN PATIENT ZUHAIR: Not Applicable Instructions: Amado Palsy, Adult Forms: ED Department Discharge Care Plan Goals: The patient was advised of the examination results during the visit. The patient was given an oral dose of Prednisone (60 mg) while in the ED. The patient was discharged with a script for Prednisone to take 60 mg by mouth daily for 4 days (starting 12/29/18), 50 mg by mouth for 1 day, 40 mg by mouth for 1 day, 30 mg by mouth for 1 day, 20 mg by mouth for 1 day and 10 mg by mouth for 1 day. The patient was encouraged to place a patch on her eye at night for protection. If the patient develops a rash over the area, the patient should either return to the ED or visit her primary care facility. If the patient has any additional symptoms or concerns, the patient should either return to the emergency department or return to the emergency department.
== END 2018-12-28 10:45 | disposition home or self-care (01) ==
LOC: DL.ED 10:18
DX: G51.0 Bell's palsy (principal); I10 Essential (primary) hypertension; E11.9 Type 2 diabetes mellitus without complications; Z79.4 Long term (current) use of insulin; E66.9 Obesity, unspecified; Z98.890 Other specified postprocedural states; Z79.899 Other long term (current) drug therapy; Z88.5 Allergy status to narcotic agent
CPT/HCPCS: 99283; A9270

== ENCOUNTER 2019-02-08 11:57 | Emergency (ER) | payer BC ==
--- NOTE | 2019-02-08 12:19 | EDM.PDOC ---
ED HPI GENERAL MEDICAL PROBLEM - General Chief Complaint: Syncope Stated Complaint: DIZZY NOT FEELING GOOD Time Seen by Provider: 02/08/19 12:18 Source of Information: Reports: Patient, Old Records, RN, RN Notes Reviewed History Limitations: Reports: No Limitations - History of Present Illness INITIAL COMMENTS - FREE TEXT/NARRATIVE: Pt presents to ER from home by POV with c/o onset last evening of intermittent episodes of shortness of breath with mild cough/urge to cough, and lightheadedness/dizziness. Pt admits to occasional slight heaviness of the chest. Denies chest pain, fever, chills, nausea, vomiting, wheezing, orthopnea, edema, leg/calf pain, or chest pain. She had breast reduction surgery about 2.5 weeks ago. Denies syncope, but admits to recurrent near-syncope. Onset: Gradual Onset Date: 02/07/19 Duration: Getting Worse, Intermittent, Recurring, Waxing/Waning Location: Reports: Chest Quality: Reports: Pressure Severity: Moderate Improves with: Reports: None Worsens with: Reports: Other (Activity/Exertion) Associated Symptoms: Reports: No Other Symptoms - Related Data Allergies Allergy/AdvReac Type Severity Reaction Status Date / Time codeine AdvReac Unknown Nausea and Verified 02/08/19 12:20 Vomiting Home Meds: Home Meds Glucosamine Sulfate 2KCl [Glucosamine] 1,000 mg PO BID 06/07/14 [History] NIFEdipine [Procardia XL] 30 mg PO DAILY 09/07/16 [History] Ca Carbonate/Vitamin D3/Vit K [Calcium + D Soft Chewable Tab] 1 each PO DAILY [History] Insulin Glarg,Human.Rec.Analog [Lantus] 28 unit SQ DAILY 03/17/17 [History] Gabapentin [Neurontin] 300 mg PO TID 11/16/17 [History] DULoxetine HCl [Duloxetine HCl] 60 mg PO DAILY 10/08/18 [History] Liraglutide [Victoza] 6 units SQ DAILY 10/08/18 [History] Lisinopril 20 mg PO BID 10/08/18 [History] atorvaSTATin Calcium [Atorvastatin Calcium] 10 mg PO DAILY 10/08/18 [History] Past Medical History HEENT History: Reports: Impaired Vision Other HEENT History: wears glasses Cardiovascular History: Reports: High Cholesterol, Hypertension Respiratory History: Reports: None Gastrointestinal History: Reports: None Genitourinary History: Reports: Pyelonephritis AD[employer] SOC[employer] WORKER History: Reports: None Musculoskeletal History: Reports: Arthritis Neurological History: Reports: Neuropathy, Peripheral Psychiatric History: Reports: Anxiety, Depression Endocrine/Metabolic History: Reports: Diabetes, Type II, Obesity/BMI 30+ Hematologic History: Reports: None Immunologic History: Reports: None Oncologic (Cancer) History: Reports: None Dermatologic History: Reports: None - Infectious Disease History Infectious Disease History: Reports: Chicken Pox - Past Surgical History Head Surgeries/Procedures: Reports: None HEENT Surgical History: Reports: Adenoidectomy, Tonsillectomy Cardiovascular Surgical History: Reports: None Female Surgical History: Reports: Breast Reduction (January 2019), Section Social & Family History - Family History Family Medical History: Noncontributory - Tobacco Use Smoking Status *Q: Never Smoker - Caffeine Use Caffeine Use: Reports: Soda - Living Situation & Occupation Living situation: Reports: , with Family Occupation: Employed ED ROS GENERAL - Review of Systems Review Of Systems: See Below - Physical Exam Exam: See Below Exam Limited By: No Limitations General Appearance: Alert, No Apparent Distress, Obese Eye Exam: Bilateral Eye: EOMI, Normal Inspection, PERRL Ears: Hearing Grossly Normal Nose: Normal Inspection, Normal Mucosa, No Blood Throat/Mouth: Normal Inspection, Normal Lips, Normal Oropharynx, Normal Voice, No Airway Compromise Head Exam: Atraumatic, Normocephalic Neck: Normal Inspection, Supple, Non-Tender, Full Range of Motion Respiratory/Chest: No Respiratory Distress, Lungs Clear, Normal Breath Sounds, No Accessory Muscle Use Cardiovascular: Normal Peripheral Pulses, Regular Rate, Rhythm, No Edema, No Gallop, No JVD, No Murmur, No Rub GI/Abdominal: Normal Bowel Sounds, Soft, Non-Tender, No Distention, No Abnormal Bruit. No: Guarding, Rigid, Rebound (Female) Exam: Deferred Rectal (Female) Exam: Deferred Neuro Exam (Abbreviated): Alert, Oriented, CN II-XII Intact, Normal Cognition, Normal Reflexes, No Motor/Sensory Deficits Back Exam: Normal Inspection Extremities: Normal Inspection, Normal Range of Motion, Non-Tender, No Pedal Edema, Normal Capillary Refill Psychiatric: Normal Affect, Normal Mood Skin Exam: Warm, Dry, Intact, Normal Color, No Rash EKG INTERPRETATION EKG Date: 02/08/19 Time: 12:37 Rhythm: Other (SR) Rate (Beats/Min): 70 [place]: Normal P-Wave: Present QRS: Other (borderline low voltage) ST-T: Normal QT: Normal Comparison: No Change Course - Vital Signs Last Recorded V/S: Last Vital Signs Temp 36.4 C 02/08/19 12:11 Pulse 72 02/08/19 12:11 Resp 20 02/08/19 12:11 BP 106/41 L 02/08/19 12:11 Pulse Ox 99 02/08/19 12:11 Orthostatic Blood Pressure [ 126/64 Standing] Orthostatic Blood Pressure [ 127/56 Sitting] Orthostatic Blood Pressure [ 120/56 Supine] Not orthostatic. - Orders/Labs/Meds Orders: Active Orders 24 hr Category Date Time Status Blood Glucose Check, Bedside [] ONETIME Care 02/08/19 12:33 Active EKG 12 Lead [EKG Documentation Completion] [] STAT Care 02/08/19 12:33 Active Orthostatic Vital Signs [] ASDIRECTED Care 02/08/19 15:50 Active Peripheral IV Care [] . DIRECTED Care 02/08/19 12:34 Active CULTURE URINE [] Stat Lab 02/08/19 13:12 Received Sodium Chloride 0.9% [Normal Saline] 1,000 ml Med 02/08/19 15:50 Active IV .BOLUS Sodium Chloride 0.9% [Saline Flush] Med 02/08/19 12:33 Active 10 ml FLUSH ASDIRECTED PRN Peripheral IV Insertion Adult [OM.PC] Stat Oth 02/08/19 12:33 Ordered Medication Orders Sodium Chloride (Normal Saline) 1,000 mls @ 999 mls/hr IV .BOLUS ONE Stop: 02/08/19 16:50 Last Admin: 02/08/19 16:09 Dose: 999 mls/hr Sodium Chloride (Saline Flush) 10 ml FLUSH ASDIRECTED PRN PRN Reason: Keep Vein Open Last Admin: 02/08/19 12:40 Dose: 10 ml Labs: Laboratory Tests 02/08/19 02/08/19 02/08/19 Range/Units 12:19 12:35 12:35 WBC 4.9 L (5.0-10.0) 10^3/uL RBC 3.84 L (4.2-5.4) 10^6/uL Hgb 11.4 L D (12.0-16.0) g/dL Hct 34.6 L (37.0-47.0) % MCV 90.1 (80-100) fL MCH 29.7 (27.0-34.0) pg MCHC 32.9 L (33.0-35.0) g/dL Plt Count 171 (150-450) 10^3/uL Neut % (Auto) 74.0 (42.2-75.2) % Lymph % (Auto) 17.9 L (20.5-50.1) % [place] % (Auto) 7.9 (2-8) % Eos % (Auto) 0.0 L (1.0-3.0) % Baso % (Auto) 0.2 (0.0-1.0) % Sodium 139 (135-145) mmol/L Potassium 3.8 (3.6-5.0) mmol/L Chloride 105 (101-111) mmol/L Carbon Dioxide 23.0 (21.0-31.0) mmol/L Anion Gap 14.8 BUN 16 (7-18) mg/dL Creatinine 0.8 (0.6-1.3) mg/dL Est Cr Clr Drug Dosing 68.61 mL/min Estimated GFR (MDRD) > 60 BUN/Creatinine Ratio 20.00 Glucose 127 H (74-105) mg/dL POC Glucose 122 H (70-105) mg/dl Calcium 9.3 (8.4-10.2) mg/dl Total Bilirubin 1.3 H (0.2-1.0) mg/dL AST 19 (10-42) IU/L ALT 17 (10-60) IU/L Alkaline Phosphatase 61 (42-121) IU/L Troponin I < 0.02 (0.00-0.02) ng/ml Total Protein 6.3 L (6.7-8.2) g/dl Albumin 3.8 (3.2-5.5) g/dl Globulin 2.5 Albumin/Globulin Ratio 1.52 Urine Color (YELLOW) Urine Appearance (CLEAR) Urine pH (5.0-9.0) Ur Specific [place] (1.005-1.030) Urine Protein (NEGATIVE) Urine Glucose (UA) (NEGATIVE) Urine Ketones (NEGATIVE) Urine Occult Blood (NEGATIVE) Urine Nitrite (NEGATIVE) Urine Bilirubin (NEGATIVE) Urine Urobilinogen (0.2-1.0) mg/dL Ur Leukocyte Esterase (NEGATIVE) Urine RBC /HPF Urine WBC (0-5/HPF) /HPF Ur Epithelial Cells /HPF Urine Bacteria (0-FEW/HPF) /HPF Hyaline Casts /LPF Urine Mucus /LPF 02/08/19 Range/Units 13:12 WBC (5.0-10.0) 10^3/uL RBC (4.2-5.4) 10^6/uL Hgb (12.0-16.0) g/dL Hct (37.0-47.0) % MCV (80-100) fL MCH (27.0-34.0) pg MCHC (33.0-35.0) g/dL Plt Count (150-450) 10^3/uL Neut % (Auto) (42.2-75.2) % Lymph % (Auto) (20.5-50.1) % [place] % (Auto) (2-8) % Eos % (Auto) (1.0-3.0) % Baso % (Auto) (0.0-1.0) % Sodium (135-145) mmol/L Potassium (3.6-5.0) mmol/L Chloride (101-111) mmol/L Carbon Dioxide (21.0-31.0) mmol/L Anion Gap BUN (7-18) mg/dL Creatinine (0.6-1.3) mg/dL Est Cr Clr Drug Dosing mL/min Estimated GFR (MDRD) BUN/Creatinine Ratio Glucose (74-105) mg/dL POC Glucose (70-105) mg/dl Calcium (8.4-10.2) mg/dl Total Bilirubin (0.2-1.0) mg/dL AST (10-42) IU/L ALT (10-60) IU/L Alkaline Phosphatase (42-121) IU/L Troponin I (0.00-0.02) ng/ml Total Protein (6.7-8.2) g/dl Albumin (3.2-5.5) g/dl Globulin Albumin/Globulin Ratio Urine Color Dark yellow (YELLOW) Urine Appearance Clear (CLEAR) Urine pH 7.0 (5.0-9.0) Ur Specific [place] 1.020 (1.005-1.030) Urine Protein Negative (NEGATIVE) Urine Glucose (UA) Negative (NEGATIVE) Urine Ketones Negative (NEGATIVE) Urine Occult Blood Negative (NEGATIVE) Urine Nitrite Negative (NEGATIVE) Urine Bilirubin Negative (NEGATIVE) Urine Urobilinogen 0.2 (0.2-1.0) mg/dL Ur Leukocyte Esterase Trace H (NEGATIVE) Urine RBC 0-5 /HPF Urine WBC 0-5 (0-5/HPF) /HPF Ur Epithelial Cells Moderate H /HPF Urine Bacteria Few (0-FEW/HPF) /HPF Hyaline Casts Few H /LPF Urine Mucus Few H /LPF Meds: Medications Generic Name Dose Route Start Last Admin Trade Name Freq PRN Reason Stop Dose Admin Sodium Chloride 1,000 mls @ 999 mls/hr 02/08/19 15:50 02/08/19 16:09 Normal Saline IV 02/08/19 16:50 999 mls/hr .BOLUS ONE Administration Sodium Chloride 10 ml 02/08/19 12:33 02/08/19 12:40 Saline Flush FLUSH 10 ml ASDIRECTED PRN Administration Keep Vein Open Discontinued Medications Generic Name Dose Route Start Last Admin Trade Name Freq PRN Reason Stop Dose Admin Iopamidol 100 ml 02/08/19 13:12 02/08/19 14:19 Isovue-370 (76%) IVPUSH 02/08/19 13:13 100 ml ONETIME ONE Administration - Radiology Interpretation Free Text/Narrative:: CXR: no acute process, see Rad. report. CT Chest PE protocol: low prob. of PE, no acute abnl. per Rad. report. - Re-Assessments/Exams Free Text/Narrative Re-Assessment/Exam: 02/08/19 16:27 I find no evidence of PE, and think the pt is at low risk for acute cardiac event based on the Hx, exam, and today's diagnostic results. Her UA looks consistent with dehydration. I think she is safe to be d/c'd home with close outpt. follow up. Pt is aware of the signs or symptoms which should prompt her to return to the ER. Departure - Departure Time of Disposition: 16:25 Disposition: Home, Self-Care 01 Condition: Fair Clinical Impression: Near syncope, Dehydration Anemia Qualifiers: Anemia type: unspecified type Qualified Code(s): D64.9 - Anemia, unspecified - Discharge Information *PRESCRIPTION DRUG MONITORING PROGRAM REVIEWED*: No *COPY OF PRESCRIPTION DRUG MONITORING REPORT IN PATIENT ZUHAIR: No Instructions: Near-Syncope, [id number], Dehydration, Adult, [id number], Anemia Forms: ED Department Discharge Additional Instructions: Rest, drink plenty of water. Follow up in clinic in 2 to 3 days for recheck. Return to ER if worse at any time, or if any new or concerning symptoms develop. - My Orders Last 24 Hours: My Active Orders 02/08/19 12:33 Blood Glucose Check, Bedside [RC] ONETIME EKG 12 Lead [EKG Documentation Completion] [RC] STAT Sodium Chloride 0.9% [Saline Flush] 10 ml FLUSH ASDIRECTED PRN Peripheral IV Insertion Adult [OM.PC] Stat 02/08/19 12:34 Peripheral IV Care [RC] . DIRECTED 02/08/19 13:12 CULTURE URINE [RM] Stat 02/08/19 15:50 Orthostatic Vital Signs [RC] ASDIRECTED Sodium Chloride 0.9% [Normal Saline] 1,000 ml IV .BOLUS - Assessment/Plan Last 24 Hours: My Active Orders 02/08/19 12:33 Blood Glucose Check, Bedside [RC] ONETIME EKG 12 Lead [EKG Documentation Completion] [RC] STAT Sodium Chloride 0.9% [Saline Flush] 10 ml FLUSH ASDIRECTED PRN Peripheral IV Insertion Adult [OM.PC] Stat 02/08/19 12:34 Peripheral IV Care [RC] . DIRECTED 02/08/19 13:12 CULTURE URINE [RM] Stat 02/08/19 15:50 Orthostatic Vital Signs [RC] ASDIRECTED Sodium Chloride 0.9% [Normal Saline] 1,000 ml IV .BOLUS
[2019-02-08] MEDS ORDERED: Sodium Chloride 0.9% 10 ML Syringe FLUSH PRN (12:33)
[2019-02-08 13:04] LABS: ANION GAP 14.8; CHLORIDE,CL 105 mmol/L (101-111); SODIUM,NA 139 mmol/L (135-145)
[2019-02-08] MEDS ORDERED: Iopamidol 755 Mg/ML 100 ML Bottle IVPUSH ONE (13:12)
--- NOTE | 2019-02-08 13:17 | CR ---
Clinical history: 53-year-old female shortness of breath and syncopal episode. Interpretation: No acute new cardiopulmonary abnormality since previous exam 26 November 2018. Normal cardiac silhouette without cephalization of flow, alveolar edema or dependent effusion. (external electronic device monitor leads and bra hardware) No new lung mass, hilar lymphadenopathy or focal lobar pneumonia. No atelectasis/collapse. No pneumothorax.
--- NOTE | 2019-02-08 15:37 | CT ---
Clinical history: 53-year-old hypertensive 236 pound diabetic female with chest pain who had surgery 2 weeks ago and now chest patient shortness of breath (syncopal episode). WBC 4900. Scan technique: Volume acquisition of data emergency CT scan of the chest (bony thorax lungs and mediastinum) following PE technique i.e. 85 cc nonionic Isovue 370 contrast at 5 cc/s via injector while patient was lying supine on the Siemens multi slice scanner [place], [place]. All data archived in the PACS system for storage, reformatting axial/sagittal/coronal planes and study (lung/mediastinal and pulmonary artery windows). Interpretation: Low probability pulmonary artery thrombosis or embolism i.e. negative. 1. Normal cardiac silhouette. No pericardial effusion. No alveolar edema or signs of heart failure. 2. No intraluminal filling defect or thrombus identified in the main or peripheral pulmonary artery circulation. 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 No peripheral pleural-based wedge shaped infarcts. 3. No sign of lung mass, hilar/mediastinal lymphadenopathy or malignant effusion. 4. No focal lobar pneumonia. 5. Normal caliber thoracic aorta. Osteopenia and chronic hypertrophic arthritic changes of the spine. No fracture or dislocation.
[2019-02-08] MEDS ORDERED: Sodium Chloride 0.9% 1,000 ML IV ONE (15:50)
[2019-02-08 16:48] VITALS: BP 116/63
== END 2019-02-08 16:46 | disposition home or self-care (01) ==
LOC: DL.ED 11:57
DX: E86.0 Dehydration (principal); R55 Syncope and collapse; D64.9 Anemia, unspecified; I10 Essential (primary) hypertension; E78.00 Pure hypercholesterolemia, unspecified; E11.40 Type 2 diabetes mellitus with diabetic neuropathy, unspecified; F41.9 Anxiety disorder, unspecified; F32.9 Major depressive disorder, single episode, unspecified; Z79.4 Long term (current) use of insulin; Z79.899 Other long term (current) drug therapy; Z88.5 Allergy status to narcotic agent
CPT/HCPCS: 36415; 71045; 71260; 80053; 81001; 82962; 84484; 85025; 87086; 93005; 96365; 99284; J7030; Q9967

== ENCOUNTER 2019-03-11 16:32 | Emergency (ER) | payer BC ==
--- NOTE | 2019-03-11 16:50 | EDM.PDOC ---
<Wilman Castellon - Last Filed: 03/11/19 19:04> ED HPI GENERAL MEDICAL PROBLEM - General Chief Complaint: Abdominal Pain Stated Complaint: SICK Time Seen by Provider: 03/11/19 16:49 Source of Information: Reports: Patient, Old Records, RN, RN Notes Reviewed History Limitations: Reports: No Limitations - History of Present Illness INITIAL COMMENTS - FREE TEXT/NARRATIVE: Patient presents to ER stating that she has had upper abdominal pain with nausea , vomiting, a small amount of diarrhea since 0500HRS. Pt denies urinary symptoms , cough, bloody, black, or tarry stools. She reports subjective fevers, but didn 't measure her temperature. No known sick contacts. Pt rates her pain as 7/10. Nothing alleviates or aggravates her pain. Onset: Today Duration: Constant Location: Reports: Abdomen Quality: Reports: Ache Severity: Moderate Improves with: Reports: None Worsens with: Reports: None Context: Denies: Sick Contact Associated Symptoms: Reports: No Other Symptoms Abdomen Pain Score (Numeric/FACES): 2 - Related Data Allergies Allergy/AdvReac Type Severity Reaction Status Date / Time codeine AdvReac Unknown Nausea and Verified 03/11/19 16:41 Vomiting Home Meds: Home Meds Glucosamine Sulfate 2KCl [Glucosamine] 1,000 mg PO BID 06/07/14 [History] NIFEdipine [Procardia XL] 30 mg PO DAILY 09/07/16 [History] Ca Carbonate/Vitamin D3/Vit K [Calcium + D Soft Chewable Tab] 1 each PO DAILY [History] Insulin Glarg,Human.Rec.Analog [Lantus] 28 unit SQ DAILY 03/17/17 [History] Gabapentin [Neurontin] 300 mg PO TID 11/16/17 [History] DULoxetine HCl [Duloxetine HCl] 60 mg PO DAILY 10/08/18 [History] Liraglutide [Victoza] 6 units SQ DAILY 10/08/18 [History] Lisinopril 20 mg PO BID 10/08/18 [History] atorvaSTATin Calcium [Atorvastatin Calcium] 10 mg PO DAILY 10/08/18 [History] Past Medical History HEENT History: Reports: Impaired Vision Other HEENT History: wears glasses Cardiovascular History: Reports: High Cholesterol, Hypertension Respiratory History: Reports: None Gastrointestinal History: Reports: None Genitourinary History: Reports: Pyelonephritis 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 Musculoskeletal History: Reports: Arthritis Neurological History: Reports: Neuropathy, Peripheral Psychiatric History: Reports: Anxiety, Depression Endocrine/Metabolic History: Reports: Diabetes, Type II, Obesity/BMI 30+ Hematologic History: Reports: None Immunologic History: Reports: None Oncologic (Cancer) History: Reports: None Dermatologic History: Reports: None - Infectious Disease History Infectious Disease History: Reports: Chicken Pox - Past Surgical History Head Surgeries/Procedures: Reports: None HEENT Surgical History: Reports: Adenoidectomy, Tonsillectomy Cardiovascular Surgical History: Reports: None Female Surgical History: Reports: Breast Reduction, Section Social & Family History - Family History Family Medical History: Noncontributory - Tobacco Use Smoking Status *Q: Former Smoker Used Tobacco, but Quit: Yes Month/Year Tobacco Last Used: ? - Caffeine Use Caffeine Use: Reports: None - Recreational Drug Use Recreational Drug Use: No - Living Situation & Occupation Living situation: Reports: , with Family Occupation: Employed ED ROS GENERAL - Review of Systems Review Of Systems: ROS reveals no pertinent complaints other than HPI. ED EXAM, GI/ABD - Physical Exam Exam: See Below Exam Limited By: No Limitations General Appearance: Alert, WD/WN, No Apparent Distress, Obese Eyes: Bilateral: Normal Appearance (no scleral icterus) Nose: Normal Inspection Throat/Mouth: Normal Inspection, Normal Lips, Normal Teeth, Normal Gums, Normal Oropharynx, Normal Voice, No Airway Compromise Head: Atraumatic, Normocephalic Neck: Normal Inspection, Supple, Non-Tender, Full Range of Motion Respiratory/Chest: No Respiratory Distress, Lungs Clear, Normal Breath Sounds, No Accessory Muscle Use, Chest Non-Tender Cardiovascular: Normal Peripheral Pulses, Regular Rate, Rhythm, No Edema, No Gallop, No Murmur, Tachycardia GI/Abdominal Exam: Normal Bowel Sounds, Soft, No Organomegaly, No Distention, No Abnormal Bruit, Tender (RUQ tenderness). No: Guarding, Rigid, Rebound (Female) Exam: Deferred Rectal (Female) Exam: Deferred Back Exam: Normal Inspection, Full Range of Motion. No: CVA Tenderness (L), CVA Tenderness (R) Extremities: Normal Inspection Neurological: Alert, Oriented, CN II-XII Intact, Normal Cognition, No Motor/ Sensory Deficits Psychiatric: Normal Affect, Normal Mood Skin Exam: Warm, Dry, Intact, Normal Color, No Rash Course - Vital Signs Last Recorded V/S: Last Vital Signs Temp 98.6 F 03/11/19 18:45 Pulse 97 03/11/19 18:45 Resp 14 03/11/19 18:45 BP 124/60 03/11/19 18:45 Pulse Ox 100 03/11/19 18:45 - Orders/Labs/Meds Orders: Active Orders 24 hr Category Date Time Status Blood Glucose Check, Bedside [RC] ONETIME Care 03/11/19 16:57 Active Peripheral IV Care [RC] . DIRECTED Care 03/11/19 16:57 Active Sodium Chloride 0.9% [Saline Flush] Med 03/11/19 16:57 Active 10 ml FLUSH ASDIRECTED PRN Peripheral IV Insertion Adult [OM.PC] Stat Oth 03/11/19 16:57 Ordered Medication Orders Sodium Chloride (Saline Flush) 10 ml FLUSH ASDIRECTED PRN PRN Reason: Keep Vein Open Last Admin: 03/11/19 17:10 Dose: 10 ml Labs: Laboratory Tests 03/11/19 03/11/19 03/11/19 Range/Units 17:03 17:03 17:03 WBC 9.2 (5.0-10.0) 10^3/uL RBC 4.91 (4.2-5.4) 10^6/uL Hgb 14.6 D (12.0-16.0) g/dL Hct 43.0 (37.0-47.0) % MCV 87.6 (80-100) fL MCH 29.7 (27.0-34.0) pg MCHC 34.0 (33.0-35.0) g/dL Plt Count 189 (150-450) 10^3/uL Neut % (Auto) 94.5 H (42.2-75.2) % Lymph % (Auto) 2.5 L (20.5-50.1) % Becker % (Auto) 2.9 (2-8) % Eos % (Auto) 0.0 L (1.0-3.0) % Baso % (Auto) 0.1 (0.0-1.0) % Sodium 135 (135-145) mmol/L Potassium 4.1 (3.6-5.0) mmol/L Chloride 101 (101-111) mmol/L Carbon Dioxide 21.0 (21.0-31.0) mmol/L Anion Gap 17.1 BUN 21 H (7-18) mg/dL Creatinine 0.8 (0.6-1.3) mg/dL Est Cr Clr Drug Dosing 68.61 mL/min Estimated GFR (MDRD) > 60 BUN/Creatinine Ratio 26.25 Glucose 230 H (74-105) mg/dL Lactic Acid 2.0 (0.5-2.2) mmol/L Calcium 9.1 (8.4-10.2) mg/dl Total Bilirubin 1.5 H (0.2-1.0) mg/dL AST 29 (10-42) IU/L ALT 24 (10-60) IU/L Alkaline Phosphatase 78 (42-121) IU/L Total Protein 7.2 (6.7-8.2) g/dl Albumin 4.4 (3.2-5.5) g/dl Globulin 2.8 Albumin/Globulin Ratio 1.57 Amylase 57 (28-100) U/L Lipase 33 (22-51) U/L Urine Color (YELLOW) Urine Appearance (CLEAR) Urine pH (5.0-9.0) Ur Specific [place] (1.005-1.030) Urine Protein (NEGATIVE) Urine Glucose (UA) (NEGATIVE) Urine Ketones (NEGATIVE) Urine Occult Blood (NEGATIVE) Urine Nitrite (NEGATIVE) Urine Bilirubin (NEGATIVE) Urine Urobilinogen (0.2-1.0) mg/dL Ur Leukocyte Esterase (NEGATIVE) Urine RBC /HPF Urine WBC (0-5/HPF) /HPF Ur Epithelial Cells /HPF Amorphous Sediment (0/HPF) /HPF Urine Bacteria (0-FEW/HPF) /HPF Urine Mucus /LPF 03/11/19 Range/Units 17:04 WBC (5.0-10.0) 10^3/uL RBC (4.2-5.4) 10^6/uL Hgb (12.0-16.0) g/dL Hct (37.0-47.0) % MCV (80-100) fL MCH (27.0-34.0) pg MCHC (33.0-35.0) g/dL Plt Count (150-450) 10^3/uL Neut % (Auto) (42.2-75.2) % Lymph % (Auto) (20.5-50.1) % Becker % (Auto) (2-8) % Eos % (Auto) (1.0-3.0) % Baso % (Auto) (0.0-1.0) % Sodium (135-145) mmol/L Potassium (3.6-5.0) mmol/L Chloride (101-111) mmol/L Carbon Dioxide (21.0-31.0) mmol/L Anion Gap BUN (7-18) mg/dL Creatinine (0.6-1.3) mg/dL Est Cr Clr Drug Dosing mL/min Estimated GFR (MDRD) BUN/Creatinine Ratio Glucose (74-105) mg/dL Lactic Acid (0.5-2.2) mmol/L Calcium (8.4-10.2) mg/dl Total Bilirubin (0.2-1.0) mg/dL AST (10-42) IU/L ALT (10-60) IU/L Alkaline Phosphatase (42-121) IU/L Total Protein (6.7-8.2) g/dl Albumin (3.2-5.5) g/dl Globulin Albumin/Globulin Ratio Amylase (28-100) U/L Lipase (22-51) U/L Urine Color Yellow (YELLOW) Urine Appearance Slightly cloudy (CLEAR) Urine pH 6.0 (5.0-9.0) Ur Specific [place] 1.025 (1.005-1.030) Urine Protein 100 H (NEGATIVE) Urine Glucose (UA) Negative (NEGATIVE) Urine Ketones 15 H (NEGATIVE) Urine Occult Blood Trace-intact H (NEGATIVE) Urine Nitrite Negative (NEGATIVE) Urine Bilirubin Small H (NEGATIVE) Urine Urobilinogen 0.2 (0.2-1.0) mg/dL Ur Leukocyte Esterase Negative (NEGATIVE) Urine RBC 0-5 /HPF Urine WBC 5-10 H (0-5/HPF) /HPF Ur Epithelial Cells Rare /HPF Amorphous Sediment Few (0/HPF) /HPF Urine Bacteria Few (0-FEW/HPF) /HPF Urine Mucus Rare /LPF Meds: Medications Generic Name Dose Route Start Last Admin Trade Name Freq PRN Reason Stop Dose Admin Sodium Chloride 10 ml 03/11/19 16:57 03/11/19 17:10 Saline Flush FLUSH 10 ml ASDIRECTED PRN Administration Keep Vein Open Discontinued Medications Generic Name Dose Route Start Last Admin Trade Name Priya PRN Reason Stop Dose Admin Hydromorphone HCl 1 mg 03/11/19 16:58 03/11/19 17:09 Dilaudid IVPUSH 03/11/19 16:59 1 mg ONETIME ONE Administration Sodium Chloride 1,000 mls @ 999 mls/hr 03/11/19 16:57 03/11/19 17:08 Normal Saline IV 03/11/19 17:57 999 mls/hr .BOLUS ONE Administration Iopamidol 100 ml 03/11/19 17:43 03/11/19 17:59 Isovue-300 (61%) IVPUSH 03/11/19 17:44 100 ml ONETIME ONE Administration Ondansetron HCl 4 mg 03/11/19 16:57 03/11/19 17:09 Zofran IV 03/11/19 16:58 4 mg ONETIME ONE Administration Departure - Departure Disposition: Home, Self-Care 01 Clinical Impression: Gastroenteritis - Discharge Information Instructions: Abdominal Pain, Adult, [id number], Viral Gastroenteritis, Adult , [id number], Food Choices to Help Relieve Diarrhea, Adult, Nausea and Vomiting, Adult, [id number] Forms: ED Department Discharge Additional Instructions: Small sips of water frequently to prevent dehydration RX: Zofran, Dicyclomine Follow up with your primary care facility May use Imodium over the counter for diarrhea. <Marie Corbett - Last Filed: 03/11/19 19:37> Course - Radiology Interpretation Free Text/Narrative:: CT Abdomen/Pelvis with contrast: FINDINGS: ABDOMEN: Liver: Normal. No mass. Gallbladder and bile ducts: Normal. No calcified stones. No ductal dilation. Pancreas: Normal. No ductal dilation. Spleen: Spleen measures 19 cm. Adrenals: Normal. No mass. Kidneys and ureters: Bilateral nonobstructive renal stones measuring 2 mm or less. 2.1 cm left renal cyst. Stomach and bowel: Normal. No obstruction. No mucosal thickening. Appendix: No evidence of appendicitis. PELVIS: Bladder: Unremarkable as visualized. Reproductive: 2 calcified fibroids measuring up to 4.3 cm. ABDOMEN and PELVIS: Intraperitoneal space: Normal. No free air. No significant fluid collection. Bones/joints: Scoliosis. Soft tissues: Unremarkable. Vasculature: Normal. No abdominal aortic aneurysm. Lymph nodes: Normal. No enlarged lymph nodes. IMPRESSION: 1. Splenomegaly. 2. Bilateral nonobstructive renal stones measuring 2 mm or less. 3. 2.1 cm left renal cyst. 4. 2 calcified fibroids measuring up to 4.3 cm. 5. Scoliosis. 6. Stable exam Thank you for allowing us to participate in the care of your patient. Dictated and Authenticated by: Audra Lofton MD 03/11/2019 7:25 PM Central Time ([place] & [place]) See rad report Departure - Departure Time of Disposition: 19:35 Condition: Fair - Discharge Information *PRESCRIPTION DRUG MONITORING PROGRAM REVIEWED*: No *COPY OF PRESCRIPTION DRUG MONITORING REPORT IN PATIENT ZUHAIR: No
[2019-03-11] MEDS ORDERED: Ondansetron 4 MG/2 ML SDV IV ONE (16:57)
[2019-03-11] MEDS ORDERED: Sodium Chloride 0.9% 10 ML Syringe FLUSH PRN (16:57)
[2019-03-11] MEDS ORDERED: Sodium Chloride 0.9% 1,000 ML IV ONE (16:57)
[2019-03-11] MEDS ORDERED: HYDROmorphone 1 MG/ML Syringe IVPUSH ONE (16:58)
[2019-03-11 17:37] LABS: ANION GAP 17.1; CHLORIDE,CL 101 mmol/L (101-111); SODIUM,NA 135 mmol/L (135-145)
[2019-03-11] MEDS ORDERED: Iopamidol 612 MG/ML 100 ML Bottle IVPUSH ONE (17:43)
[2019-03-11 18:46] VITALS: BP 124/60
== END 2019-03-11 19:52 | disposition home or self-care (01) ==
LOC: DL.ED 16:32
DX: K52.9 Noninfective gastroenteritis and colitis, unspecified (principal); E78.00 Pure hypercholesterolemia, unspecified; I10 Essential (primary) hypertension; E11.42 Type 2 diabetes mellitus with diabetic polyneuropathy; Z87.891 Personal history of nicotine dependence; Z79.899 Other long term (current) drug therapy; Z79.4 Long term (current) use of insulin
CPT/HCPCS: 36415; 74177; 80053; 81001; 82150; 82962; 83605; 83690; 85025; 96374; 96375; 99284; J1170; J2405; J7030; Q9967

== ENCOUNTER 2019-03-14 20:23 | Emergency (ER) | payer BC ==
[2019-03-14 20:44] VITALS: BP 127/51
[2019-03-14] MEDS ORDERED: Sodium Chloride 0.9% 1,000 ML IV SCH (22:45)
[2019-03-14 23:10] LABS: ANION GAP 14.6; CHLORIDE,CL 105 mmol/L (101-111); SODIUM,NA 139 mmol/L (135-145)
--- NOTE | 2019-03-14 23:51 | EDM.PDOC ---
ED HPI GENERAL MEDICAL PROBLEM - General Chief Complaint: General Stated Complaint: DIZZY, FEELING FAINT, SICK TO STOMACH Time Seen by Provider: 03/14/19 21:00 Source of Information: Reports: Patient History Limitations: Reports: No Limitations - History of Present Illness INITIAL COMMENTS - FREE TEXT/NARRATIVE: ED with c/o dizziness, no syncope. Stated earlier this week mccloud and epigastric discomfortd vomiting and diarrhea. [place] better today and went out to do washing. Dizzy with activity and movement. Thought she just needed to eat but unable to from nausea Abdominal Pain Score (Numeric/FACES): 5 - Related Data Allergies Allergy/AdvReac Type Severity Reaction Status Date / Time codeine AdvReac Unknown Nausea and Verified 03/14/19 20:39 Vomiting Home Meds: Home Meds Glucosamine Sulfate 2KCl [Glucosamine] 1,000 mg PO BID 06/07/14 [History] NIFEdipine [Procardia XL] 30 mg PO DAILY 09/07/16 [History] Ca Carbonate/Vitamin D3/Vit K [Calcium + D Soft Chewable Tab] 1 each PO DAILY [History] Insulin Glarg,Human.Rec.Analog [Lantus] 28 unit SQ DAILY 03/17/17 [History] Gabapentin [Neurontin] 300 mg PO TID 11/16/17 [History] DULoxetine HCl [Duloxetine HCl] 60 mg PO DAILY 10/08/18 [History] Liraglutide [Victoza] 6 units SQ DAILY 10/08/18 [History] Lisinopril 20 mg PO BID 10/08/18 [History] atorvaSTATin Calcium [Atorvastatin Calcium] 10 mg PO DAILY 10/08/18 [History] Past Medical History HEENT History: Reports: Impaired Vision Other HEENT History: wears glasses Cardiovascular History: Reports: High Cholesterol, Hypertension Respiratory History: Reports: None Gastrointestinal History: Reports: None Genitourinary History: Reports: Pyelonephritis 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: Musculoskeletal History: Reports: Arthritis Neurological History: Reports: Neuropathy, Peripheral Psychiatric History: Reports: Anxiety, Depression Endocrine/Metabolic History: Reports: Diabetes, Type II, Obesity/BMI 30+ Hematologic History: Reports: None Immunologic History: Reports: None Oncologic (Cancer) History: Reports: None Dermatologic History: Reports: None - Infectious Disease History Infectious Disease History: Reports: Chicken Pox - Past Surgical History Head Surgeries/Procedures: Reports: None HEENT Surgical History: Reports: Adenoidectomy, Tonsillectomy Cardiovascular Surgical History: Reports: None Female Surgical History: Reports: Breast Reduction, Section Social & Family History - Family History Family Medical History: Noncontributory - Tobacco Use Smoking Status *Q: Unknown Ever Smoked - Caffeine Use Caffeine Use: Reports: Soda - Recreational Drug Use Recreational Drug Use: No - Living Situation & Occupation Living situation: Reports: , with Family Occupation: Employed ED ROS GENERAL - Review of Systems Review Of Systems: See Below Constitutional: Reports: Malaise, Weakness, Decreased Appetite. Denies: Fever, Chills HEENT: Reports: No Symptoms Respiratory: Reports: No Symptoms Cardiovascular: Reports: No Symptoms GI/Abdominal: Reports: Abdominal Pain (epigastric) Musculoskeletal: Reports: No Symptoms Skin: Reports: No Symptoms Neurological: Reports: Dizziness ED EXAM, GENERAL - Physical Exam Exam: See Below Exam Limited By: No Limitations General Appearance: Alert, No Apparent Distress Eye Exam: Bilateral Eye: EOMI, PERRL Ears: Normal External Exam, Normal TMs Nose: Normal Inspection Throat/Mouth: Normal Voice, Other (membranes sticky) Head: Atraumatic, Normocephalic Neck: Normal Inspection Respiratory/Chest: No Respiratory Distress, Lungs Clear, Normal Breath Sounds Cardiovascular: Normal Peripheral Pulses, Regular Rate, Rhythm GI/Abdominal: Normal Bowel Sounds, Soft, Other (mild tenderness with deep palpation in epigastric region) Back Exam: Full Range of Motion Extremities: Normal Inspection Neurological: Alert, Oriented, Normal Cognition Psychiatric: Anxious Skin Exam: Warm, Dry, Intact, Normal Color Course - Vital Signs Last Recorded V/S: Last Vital Signs Temp 97.0 F 03/14/19 20:42 Pulse 98 03/14/19 20:42 Resp 18 03/14/19 20:42 BP 127/51 L 03/14/19 20:42 Pulse Ox 100 03/14/19 20:42 Orthostatic Blood Pressure [ 109/49 Standing] Orthostatic Blood Pressure [ 105/49 Sitting] Orthostatic Blood Pressure [ 100/39 Supine] - Orders/Labs/Meds Labs: Laboratory Tests 03/14/19 03/14/19 03/14/19 Range/Units 22:45 22:45 22:45 WBC 6.3 (5.0-10.0) 10^3/uL RBC 4.56 (4.2-5.4) 10^6/uL Hgb 13.4 (12.0-16.0) g/dL Hct 39.8 (37.0-47.0) % MCV 87.3 (80-100) fL MCH 29.4 (27.0-34.0) pg MCHC 33.7 (33.0-35.0) g/dL Plt Count 182 (150-450) 10^3/uL Neut % (Auto) 75.4 H (42.2-75.2) % Lymph % (Auto) 16.7 L (20.5-50.1) % Potter % (Auto) 7.7 (2-8) % Eos % (Auto) 0.0 L (1.0-3.0) % Baso % (Auto) 0.2 (0.0-1.0) % Sodium 139 (135-145) mmol/L Potassium 3.6 (3.6-5.0) mmol/L Chloride 105 (101-111) mmol/L Carbon Dioxide 23.0 (21.0-31.0) mmol/L Anion Gap 14.6 BUN 19 H (7-18) mg/dL Creatinine 0.8 (0.6-1.3) mg/dL Est Cr Clr Drug Dosing 68.61 mL/min Estimated GFR (MDRD) > 60 BUN/Creatinine Ratio 23.75 Glucose 170 H (74-105) mg/dL Lactic Acid 1.5 (0.5-2.2) mmol/L Calcium 9.0 (8.4-10.2) mg/dl Magnesium 1.5 L (1.8-2.5) mg/dL Total Bilirubin 1.1 H (0.2-1.0) mg/dL AST 24 (10-42) IU/L ALT 25 (10-60) IU/L Alkaline Phosphatase 60 (42-121) IU/L Troponin I < 0.02 (0.00-0.02) ng/ml Total Protein 6.6 L (6.7-8.2) g/dl Albumin 4.0 (3.2-5.5) g/dl Globulin 2.6 Albumin/Globulin Ratio 1.54 Urine Color (YELLOW) Urine Appearance (CLEAR) Urine pH (5.0-9.0) Ur Specific [place] (1.005-1.030) Urine Protein (NEGATIVE) Urine Glucose (UA) (NEGATIVE) Urine Ketones (NEGATIVE) Urine Occult Blood (NEGATIVE) Urine Nitrite (NEGATIVE) Urine Bilirubin (NEGATIVE) Urine Urobilinogen (0.2-1.0) mg/dL Ur Leukocyte Esterase (NEGATIVE) Urine RBC /HPF Urine WBC (0-5/HPF) /HPF Ur Epithelial Cells /HPF Urine Bacteria (0-FEW/HPF) /HPF Urine Mucus /LPF Urine Opiates Screen (NEGATIVE) Ur Oxycodone Screen (NEGATIVE) Urine Methadone Screen (NEGATIVE) Ur Barbiturates Screen (NEGATIVE) U Tricyclic Antidepress (NEGATIVE) Ur Phencyclidine Scrn (NEGATIVE) Ur Amphetamine Screen (NEGATIVE) U Methamphetamines Scrn (NEGATIVE) Urine MDMA Screen (NEGATIVE) U Benzodiazepines Scrn (NEGATIVE) Urine Cocaine Screen (NEGATIVE) U Marijuana (THC) Screen (NEGATIVE) 03/14/19 03/14/19 Range/Units 22:55 22:55 WBC (5.0-10.0) 10^3/uL RBC (4.2-5.4) 10^6/uL Hgb (12.0-16.0) g/dL Hct (37.0-47.0) % MCV (80-100) fL MCH (27.0-34.0) pg MCHC (33.0-35.0) g/dL Plt Count (150-450) 10^3/uL Neut % (Auto) (42.2-75.2) % Lymph % (Auto) (20.5-50.1) % Potter % (Auto) (2-8) % Eos % (Auto) (1.0-3.0) % Baso % (Auto) (0.0-1.0) % Sodium (135-145) mmol/L Potassium (3.6-5.0) mmol/L Chloride (101-111) mmol/L Carbon Dioxide (21.0-31.0) mmol/L Anion Gap BUN (7-18) mg/dL Creatinine (0.6-1.3) mg/dL Est Cr Clr Drug Dosing mL/min Estimated GFR (MDRD) BUN/Creatinine Ratio Glucose (74-105) mg/dL Lactic Acid (0.5-2.2) mmol/L Calcium (8.4-10.2) mg/dl Magnesium (1.8-2.5) mg/dL Total Bilirubin (0.2-1.0) mg/dL AST (10-42) IU/L ALT (10-60) IU/L Alkaline Phosphatase (42-121) IU/L Troponin I (0.00-0.02) ng/ml Total Protein (6.7-8.2) g/dl Albumin (3.2-5.5) g/dl Globulin Albumin/Globulin Ratio Urine Color Danay (YELLOW) Urine Appearance Slightly cloudy (CLEAR) Urine pH 5.5 (5.0-9.0) Ur Specific [place] 1.020 (1.005-1.030) Urine Protein 30 H (NEGATIVE) Urine Glucose (UA) Negative (NEGATIVE) Urine Ketones Trace H (NEGATIVE) Urine Occult Blood Negative (NEGATIVE) Urine Nitrite Negative (NEGATIVE) Urine Bilirubin Small H (NEGATIVE) Urine Urobilinogen 0.2 (0.2-1.0) mg/dL Ur Leukocyte Esterase Small H (NEGATIVE) Urine RBC 0-5 /HPF Urine WBC 30-40 H (0-5/HPF) /HPF Ur Epithelial Cells Many H /HPF Urine Bacteria Many H (0-FEW/HPF) /HPF Urine Mucus Moderate H /LPF Urine Opiates Screen Negative (NEGATIVE) Ur Oxycodone Screen Negative (NEGATIVE) Urine Methadone Screen Negative (NEGATIVE) Ur Barbiturates Screen Negative (NEGATIVE) U Tricyclic Antidepress Negative (NEGATIVE) Ur Phencyclidine Scrn Negative (NEGATIVE) Ur Amphetamine Screen Negative (NEGATIVE) U Methamphetamines Scrn Negative (NEGATIVE) Urine MDMA Screen Negative (NEGATIVE) U Benzodiazepines Scrn Negative (NEGATIVE) Urine Cocaine Screen Negative (NEGATIVE) U Marijuana (THC) Screen Negative (NEGATIVE) Meds: Medications Discontinued Medications Generic Name Dose Route Start Last Admin Trade Name Freq PRN Reason Stop Dose Admin Sodium Chloride 1,000 mls @ 999 mls/hr 03/14/19 22:45 03/14/19 22:57 Normal Saline IV 999 mls/hr ASDIRECTED JESSICA Administration Nitrofurantoin Macrocrystals 100 mg 03/15/19 00:09 03/15/19 00:25 Macrobid PO 03/15/19 00:10 100 mg ONETIME ONE Administration Ondansetron HCl 4 mg 03/15/19 00:09 03/15/19 00:25 Zofran Odt PO 03/15/19 00:10 4 mg ONETIME ONE Administration Departure - Departure Time of Disposition: 00:09 Disposition: Home, Self-Care 01 Condition: Good Clinical Impression: Dehydration UTI (urinary tract infection) Qualifiers: Urinary tract infection type: site unspecified Hematuria presence: with hematuria Qualified Code(s): N39.0 - Urinary tract infection, site not specified - Discharge Information *PRESCRIPTION DRUG MONITORING PROGRAM REVIEWED*: Not Applicable *COPY OF PRESCRIPTION DRUG MONITORING REPORT IN PATIENT ZUHAIR: Not Applicable Forms: ED Department Discharge Additional Instructions: increase fluids macrobid 100mg twice dailyf for one week clinic follow up later this week
[2019-03-15] MEDS ORDERED: Nitrofurantoin Monohydrate/Macrocrystalline 100 MG Cap PO ONE (00:09)
[2019-03-15] MEDS ORDERED: Ondansetron 4 MG Tab.DIS PO ONE (00:09)
== END 2019-03-15 00:31 | disposition home or self-care (01) ==
LOC: DL.ED 20:23
DX: E86.0 Dehydration (principal); N39.0 Urinary tract infection, site not specified; E78.00 Pure hypercholesterolemia, unspecified; I10 Essential (primary) hypertension; E11.42 Type 2 diabetes mellitus with diabetic polyneuropathy; F41.9 Anxiety disorder, unspecified; F32.9 Major depressive disorder, single episode, unspecified; Z88.5 Allergy status to narcotic agent; Z79.899 Other long term (current) drug therapy; Z79.4 Long term (current) use of insulin
CPT/HCPCS: 36415; 80053; 80305; 81001; 83605; 83735; 84484; 85025; 87086; 93005; 96360; 99284; A9270; J7030

== ENCOUNTER 2019-04-27 16:19 | Emergency (ER) | payer BC, MEDICAID ==
[2019-04-27 17:54] LABS: ANION GAP 13.1; CHLORIDE,CL 104 mmol/L (101-111); SODIUM,NA 136 mmol/L (135-145)
[2019-04-27] MEDS ORDERED: Enoxaparin 40 MG/0.4 ML Syringe SUBCUT ONE (19:54)
[2019-04-27 20:14] VITALS: BP 96/38
--- NOTE | 2019-04-28 05:04 | EDM.PDOC ---
"Scribed by Geraldine Maria [birth year]191952 for Shereen Richardson PA-C ED HPI GENERAL MEDICAL PROBLEM - General Chief Complaint: Lower Extremity Injury/Pain Stated Complaint: LEG/FOOT NUMBNESS,PAIN Time Seen by Provider: 04/27/19 17:10 Source of Information: Reports: Patient, RN, RN Notes Reviewed History Limitations: Reports: No Limitations - History of Present Illness INITIAL COMMENTS - FREE TEXT/NARRATIVE: Patient is a 53-year-old female who 2 days ago and increased numbness. She has pain posterior right calf x2 days. She used Aspercreme. She has had no clinic visit. Onset Date: 04/25/19 Duration: Constant Location: Reports: Lower Extremity, Right Quality: Reports: Ache Severity: Mild Improves with: Reports: None Worsens with: Reports: None Associated Symptoms: Reports: No Other Symptoms Right Foot Pain Score (Numeric/FACES): 8 - Related Data Allergies Allergy/AdvReac Type Severity Reaction Status Date / Time codeine AdvReac Unknown Nausea and Verified 04/27/19 16:51 Vomiting Home Meds: Home Meds Glucosamine Sulfate 2KCl [Glucosamine] 1,000 mg PO BID 06/07/14 [History] NIFEdipine [Procardia XL] 30 mg PO DAILY 09/07/16 [History] Ca Carbonate/Vitamin D3/Vit K [Calcium + D Soft Chewable Tab] 1 each PO DAILY [History] Insulin Glarg,Human.Rec.Analog [Lantus] 28 unit SQ DAILY 03/17/17 [History] Gabapentin [Neurontin] 300 mg PO TID 11/16/17 [History] DULoxetine HCl [Duloxetine HCl] 60 mg PO DAILY 10/08/18 [History] Liraglutide [Victoza] 6 units SQ DAILY 10/08/18 [History] Lisinopril 20 mg PO BID 10/08/18 [History] atorvaSTATin Calcium [Atorvastatin Calcium] 10 mg PO DAILY 10/08/18 [History] Past Medical History HEENT History: Reports: Impaired Vision Other HEENT History: wears glasses Cardiovascular History: Reports: High Cholesterol, Hypertension Respiratory History: Reports: None Gastrointestinal History: Reports: None Genitourinary History: Reports: 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: Musculoskeletal History: Reports: Arthritis Neurological History: Reports: Neuropathy, Peripheral Psychiatric History: Reports: Anxiety, Depression Endocrine/Metabolic History: Reports: Diabetes, Type II, Obesity/BMI 30+ Hematologic History: Reports: None Immunologic History: Reports: None Oncologic (Cancer) History: Reports: None Dermatologic History: Reports: None - Infectious Disease History Infectious Disease History: Reports: Chicken Pox - Past Surgical History Head Surgeries/Procedures: Reports: None HEENT Surgical History: Reports: Adenoidectomy, Tonsillectomy Cardiovascular Surgical History: Reports: None Female Surgical History: Reports: Breast Reduction, Section Social & Family History - Family History Family Medical History: Noncontributory - Tobacco Use Smoking Status *Q: Never Smoker Second Hand Smoke Exposure: No - Caffeine Use Caffeine Use: Reports: Soda - Recreational Drug Use Recreational Drug Use: No - Living Situation & Occupation Living situation: Reports: , with Family Occupation: Employed Review of Systems - Review of Systems Review Of Systems: ROS reveals no pertinent complaints other than HPI. ED EXAM, GENERAL - Physical Exam Exam: See Below Exam Limited By: No Limitations General Appearance: Alert, WD/WN, No Apparent Distress Eye Exam: Bilateral Eye: EOMI, Normal Inspection, PERRL Ears: Normal External Exam, Normal Canal, Hearing Grossly Normal, Normal TMs Nose: Normal Inspection, Normal Mucosa, No Blood Throat/Mouth: Normal Inspection, Normal Lips, Normal Teeth, Normal Gums, Normal Oropharynx, Normal Voice, No Airway Compromise Head: Atraumatic, Normocephalic Neck: Normal Inspection, Supple, Non-Tender, Full Range of Motion Respiratory/Chest: No Respiratory Distress, Lungs Clear, Normal Breath Sounds, No Accessory Muscle Use, Chest Non-Tender Cardiovascular: Normal Peripheral Pulses, Regular Rate, Rhythm, No Edema, No Gallop, No JVD, No Murmur, No Rub GI/Abdominal: Other (obese) (Female) Exam: Deferred Rectal (Female) Exam: Deferred Back Exam: Normal Inspection, Full Range of Motion, NT Extremities: Other (right posterior calf tenderness. Right foot numbness) Neurological: Alert, Oriented, CN II-XII Intact, Normal Cognition, Normal Gait, Normal Reflexes, No Motor/Sensory Deficits Psychiatric: Normal Affect, Normal Mood Skin Exam: Warm, Dry, Intact, Normal Color, No Rash Lymphatic: No Adenopathy Course - Vital Signs Last Recorded V/S: Last Vital Signs Temp 97.1 F 04/27/19 20:11 Pulse 88 04/27/19 20:11 Resp 18 04/27/19 20:11 BP 96/38 L 04/27/19 20:11 Pulse Ox 96 04/27/19 20:11 - Orders/Labs/Meds Labs: Laboratory Tests 04/27/19 04/27/19 04/27/19 Range/Units 17:28 17:28 17:28 WBC 5.3 (5.0-10.0) 10^3/uL RBC 4.43 (4.2-5.4) 10^6/uL Hgb 12.9 (12.0-16.0) g/dL Hct 38.6 (37.0-47.0) % MCV 87.1 (80-100) fL MCH 29.1 (27.0-34.0) pg MCHC 33.4 (33.0-35.0) g/dL Plt Count 163 (150-450) 10^3/uL Neut % (Auto) 75.5 H (42.2-75.2) % Lymph % (Auto) 16.4 L (20.5-50.1) % [place] % (Auto) 7.9 (2-8) % Eos % (Auto) 0.0 L (1.0-3.0) % Baso % (Auto) 0.2 (0.0-1.0) % D-Dimer, Quantitative 469 H (0-400) ng/mL Sodium 136 (135-145) mmol/L Potassium 4.1 (3.6-5.0) mmol/L Chloride 104 (101-111) mmol/L Carbon Dioxide 23.0 (21.0-31.0) mmol/L Anion Gap 13.1 BUN 26 H (7-18) mg/dL Creatinine 0.9 (0.6-1.3) mg/dL Est Cr Clr Drug Dosing 60.99 mL/min Estimated GFR (MDRD) > 60 BUN/Creatinine Ratio 28.88 Glucose 281 H (74-105) mg/dL Calcium 8.9 (8.4-10.2) mg/dl Total Bilirubin 0.7 (0.2-1.0) mg/dL AST 15 (10-42) IU/L ALT 17 (10-60) IU/L Alkaline Phosphatase 89 (42-121) IU/L Total Protein 6.4 L (6.7-8.2) g/dl Albumin 3.8 (3.2-5.5) g/dl Globulin 2.6 Albumin/Globulin Ratio 1.46 Meds: Medications Discontinued Medications Generic Name Dose Route Start Last Admin Trade Name Freq PRN Reason Stop Dose Admin Enoxaparin Sodium 40 mg 04/27/19 19:54 04/27/19 20:08 Lovenox SUBCUT 04/27/19 19:55 40 mg ONETIME ONE Administration - Radiology Interpretation Free Text/Narrative:: [facility] [place] [facility] Final Radiology Report Call: [phone] assistance Online chat: [email or web address] Name: OLU WALKER Age: 53Years F Date: 04/27/2019 SSN: -- : [id number] Study: US DUPLEX EXTREM VEINS [facility] Requesting Physician: Des Moe Images: 37 Addl Studies: Provided Clinical History: Contrast: Without Contrast Medium: Contrast Amount: Contrast Method: Page 1 of 2 EXAM: US Duplex Right Lower Extremity Veins, Limited EXAM DATE/TIME: 04/27/2019 6:41 PM CLINICAL HISTORY: 53 years old, female; Leg, lower; Right; Patient HX: RT lower ext pain and swelling, d-dimer 469, numbness in foot and heel for 2days TECHNIQUE: Imaging protocol: Real-time Duplex ultrasound of the Right Lower Extremity with 2-D montero scale, color Doppler flow and spectral waveform analysis. Limited exam was focused on the right lower extremity veins. COMPARISON: No relevant prior studies available. FINDINGS: Right deep veins: Unremarkable. The common femoral, femoral, proximal profunda femoral and popliteal veins are patent without thrombus. Normal Doppler waveforms. Normal compressibility and/or augmentation response. Right superficial veins: Superficial venous thrombus in the right greater saphenous vein below the knee. Soft tissues: Unremarkable. IMPRESSION: Superficial venous thrombus in the right greater saphenous vein below the knee. OLU WALKER | Final Radiology Report CONFIDENTIALITY STATEMENT This report is intended only for use by the referring physician, and only in accordance with law. If you received this in error, call [phone]. Page 2 of 2 Thank you for allowing us to participate in the care of your patient. Dictated and Authenticated by: Audra Lofton MD 04/27/2019 7:34 PM Central Time ([place] & - Re-Assessments/Exams Free Text/Narrative Re-Assessment/Exam: 04/27/19 20:01 Follow up with PCP recommended. Patient has no prior hx or family hx of clotting disorders. Patient is inactive, obese and diabetic. Recommend further discussion with PCP for determination of care home treatment. Departure - Departure Time of Disposition: 19:54 Disposition: Home, Self-Care 01 Condition: Good Clinical Impression: Acute superficial venous thrombosis of right lower extremity - Discharge Information *PRESCRIPTION DRUG MONITORING PROGRAM REVIEWED*: No *COPY OF PRESCRIPTION DRUG MONITORING REPORT IN PATIENT ZUHAIR: No Instructions: Thrombophlebitis, Venous Thromboembolism Prevention Referrals: Jordy Guzman MD [Primary Care Provider] - Forms: ED Department Discharge Additional Instructions: ibuprofen 400mg three times daily follow up with Dr Guzman tomorrow warm towel to area increase activity. urgent follow up if increased pain redness, swelling or difficulty breathing I have read and agree with the documentation that has been completed regarding this visit. By signing this record, I attest that the documentation was completed in my physical presence and is an accurate record of the encounter."
== END 2019-04-27 20:18 | disposition home or self-care (01) ==
LOC: DL.ED 16:19
DX: I82.811 Embolism and thrombosis of superficial veins of right lower extremity (principal); E78.00 Pure hypercholesterolemia, unspecified; I10 Essential (primary) hypertension; E11.9 Type 2 diabetes mellitus without complications; E66.9 Obesity, unspecified; F41.9 Anxiety disorder, unspecified; F32.9 Major depressive disorder, single episode, unspecified; Z88.5 Allergy status to narcotic agent; Z79.899 Other long term (current) drug therapy; Z79.4 Long term (current) use of insulin
CPT/HCPCS: 36415; 80053; 85025; 85379; 93971; 96372; 99284; J1650

== ENCOUNTER 2019-08-18 00:25 | Emergency (ER) | payer MEDICAID ==
[2019-08-18] MEDS ORDERED: Ondansetron 4 MG Tab.DIS PO ONE (00:26)
[2019-08-18 00:38] VITALS: BP 110/64; PULSE 90
[2019-08-18 01:54] LABS: CHLORIDE,CL 102 mmol/L (101-111); SODIUM,NA 139 mmol/L (135-145)
[2019-08-18] MEDS ORDERED: Ondansetron 4 MG Tab.DIS ONE (03:04)
--- NOTE | 2019-08-18 03:06 | EDM.PDOC ---
ED HPI GENERAL MEDICAL PROBLEM - General Chief Complaint: General Stated Complaint: FLU Time Seen by Provider: 08/18/19 00:45 Source of Information: Reports: Patient History Limitations: Reports: No Limitations - History of Present Illness INITIAL COMMENTS - FREE TEXT/NARRATIVE: ED with c/o vomiting tonight. Sx started with fever chills, body aches and cough , Coughing only after vomiting episodes. No blood in emesis, No diarrhea. No urinary symptoms, blood sugars "good". Concerned may have flu, has not had vaccine yet. Bilateral Headache Pain Score (Numeric/FACES): 5 - Related Data Allergies Allergy/AdvReac Type Severity Reaction Status Date / Time metformin AdvReac Intermediate Nausea and Verified 08/18/19 00:34 Vomiting codeine AdvReac Unknown Nausea and Verified 08/18/19 00:34 Vomiting Home Meds: Home Meds Glucosamine Sulfate 2KCl [Glucosamine] 1,000 mg PO BID 06/07/14 [History] NIFEdipine [Procardia XL] 30 mg PO DAILY 09/07/16 [History] Ca Carbonate/Vitamin D3/Vit K [Calcium + D Soft Chewable Tab] 1 each PO DAILY [History] Insulin Glarg,Human.Rec.Analog [Lantus] 28 unit SQ DAILY 03/17/17 [History] Gabapentin [Neurontin] 300 mg PO TID 11/16/17 [History] DULoxetine HCl [Duloxetine HCl] 60 mg PO DAILY 10/08/18 [History] Liraglutide [Victoza] 6 units SQ DAILY 10/08/18 [History] Lisinopril 20 mg PO BID 10/08/18 [History] atorvaSTATin Calcium [Atorvastatin Calcium] 10 mg PO DAILY 10/08/18 [History] Past Medical History HEENT History: Reports: Impaired Vision Other HEENT History: wears glasses Cardiovascular History: Reports: High Cholesterol, Hypertension Respiratory History: Reports: None Gastrointestinal History: Reports: None Genitourinary History: Reports: Pyelonephritis 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: Musculoskeletal History: Reports: Arthritis Neurological History: Reports: Neuropathy, Peripheral Psychiatric History: Reports: Anxiety, Depression Endocrine/Metabolic History: Reports: Diabetes, Type II, Obesity/BMI 30+ Hematologic History: Reports: None Immunologic History: Reports: None Oncologic (Cancer) History: Reports: None Dermatologic History: Reports: None - Infectious Disease History Infectious Disease History: Reports: Chicken Pox - Past Surgical History Head Surgeries/Procedures: Reports: None HEENT Surgical History: Reports: Adenoidectomy, Tonsillectomy Cardiovascular Surgical History: Reports: None Female Surgical History: Reports: Breast Reduction, Section Social & Family History - Family History Family Medical History: Noncontributory - Tobacco Use Smoking Status *Q: Never Smoker - Caffeine Use Caffeine Use: Reports: Soda - Recreational Drug Use Recreational Drug Use: No - Living Situation & Occupation Living situation: Reports: , with Family Occupation: Employed ED ROS GENERAL - Review of Systems Review Of Systems: ROS reveals no pertinent complaints other than HPI. ED EXAM, GENERAL - Physical Exam Exam: See Below Exam Limited By: No Limitations General Appearance: Alert, No Apparent Distress Eye Exam: Bilateral Eye: EOMI Ears: Normal External Exam, Normal TMs Nose: Normal Inspection Throat/Mouth: Normal Inspection, Normal Lips, Normal Oropharynx. No: Inflammation Head: Atraumatic, Normocephalic Neck: Normal Inspection Respiratory/Chest: No Respiratory Distress, Lungs Clear, Normal Breath Sounds Cardiovascular: Normal Peripheral Pulses, Regular Rate, Rhythm GI/Abdominal: Normal Bowel Sounds, Soft, Non-Tender Back Exam: No: CVA Tenderness (L), CVA Tenderness (R) Extremities: Pedal Edema (1+) Neurological: Alert, Oriented, Normal Cognition, No Motor/Sensory Deficits Psychiatric: Normal Affect Skin Exam: Warm, Dry, Intact, Normal Color Course - Vital Signs Last Recorded V/S: Last Vital Signs Temp 97.6 F 08/18/19 00:35 Pulse 90 08/18/19 00:35 Resp 20 08/18/19 00:35 BP 110/64 08/18/19 00:35 Pulse Ox 97 08/18/19 00:35 - Orders/Labs/Meds Orders: Active Orders 24 hr Category Date Time Status CULTURE STREP A CONFIRMATION [] Stat Lab 08/18/19 00:52 Results STREP SCRN A RAPID W CULT CONF [] Stat Lab 08/18/19 00:52 Results Labs: Laboratory Tests 08/18/19 08/18/19 08/18/19 Range/Units 01:25 01:25 01:25 WBC 6.3 (5.0-10.0) 10^3/uL RBC 4.81 (4.2-5.4) 10^6/uL Hgb 14.4 D (12.0-16.0) g/dL Hct 41.9 (37.0-47.0) % MCV 87.1 (80-100) fL MCH 29.9 (27.0-34.0) pg MCHC 34.4 (33.0-35.0) g/dL Plt Count 163 (150-450) 10^3/uL Neut % (Auto) 77.9 H (42.2-75.2) % Lymph % (Auto) 14.7 L (20.5-50.1) % [place] % (Auto) 7.1 (2-8) % Eos % (Auto) 0.0 L (1.0-3.0) % Baso % (Auto) 0.3 (0.0-1.0) % Sodium 139 (135-145) mmol/L Potassium 4.0 (3.6-5.0) mmol/L Chloride 102 (101-111) mmol/L Carbon Dioxide 28.0 (21.0-31.0) mmol/L Anion Gap 13.0 BUN 14 (7-18) mg/dL Creatinine 0.7 (0.6-1.3) mg/dL Est Cr Clr Drug Dosing 78.41 mL/min Estimated GFR (MDRD) > 60 BUN/Creatinine Ratio 20.00 Glucose 139 H (74-105) mg/dL Calcium 9.7 (8.4-10.2) mg/dl Total Bilirubin 1.4 H (0.2-1.0) mg/dL AST 16 (10-42) IU/L ALT 18 (10-60) IU/L Alkaline Phosphatase 83 (42-121) IU/L C-Reactive Protein 0.6 (0.0-1.3) mg/dL Total Protein 6.8 (6.7-8.2) g/dl Albumin 4.3 (3.2-5.5) g/dl Globulin 2.5 Albumin/Globulin Ratio 1.72 Amylase 46 (28-100) U/L Lipase 28 (22-51) U/L Meds: Medications Discontinued Medications Generic Name Dose Route Start Last Admin Trade Name Freq PRN Reason Stop Dose Admin Ondansetron HCl Confirm 08/18/19 03:04 08/18/19 03:20 Zofran Odt Administered 08/18/19 03:05 Not Given Dose 8 mg .ROUTE .STK-MED ONE Departure - Departure Time of Disposition: 03:03 Disposition: Home, Self-Care 01 Condition: Good Clinical Impression: Gastroenteritis - Discharge Information *PRESCRIPTION DRUG MONITORING PROGRAM REVIEWED*: No *COPY OF PRESCRIPTION DRUG MONITORING REPORT IN PATIENT ZUHAIR: No Instructions: Viral Gastroenteritis, Adult, [id number] Referrals: Jordy Guzman MD [Primary Care Provider] - Forms: ED Department Discharge Additional Instructions: zofran 4mg ODT one every 6 hours as needed for vomiting bland diet, , start liquids small amounts and advance as tolerated monitor blood sugars follow up if recurrent persistent vomiting or blood sugars not under control - My Orders Last 24 Hours: My Active Orders 08/18/19 00:52 CULTURE STREP A CONFIRMATION [RM] Stat STREP SCRN A RAPID W CULT CONF [RM] Stat - Assessment/Plan Last 24 Hours: My Active Orders 08/18/19 00:52 CULTURE STREP A CONFIRMATION [RM] Stat STREP SCRN A RAPID W CULT CONF [RM] Stat
== END 2019-08-18 03:33 | disposition home or self-care (01) ==
LOC: DL.ED 00:25
DX: K52.9 Noninfective gastroenteritis and colitis, unspecified (principal); E78.00 Pure hypercholesterolemia, unspecified; I10 Essential (primary) hypertension; F41.9 Anxiety disorder, unspecified; F32.9 Major depressive disorder, single episode, unspecified; E11.42 Type 2 diabetes mellitus with diabetic polyneuropathy; Z88.5 Allergy status to narcotic agent; Z88.8 Allergy status to other drugs, medicaments and biological substances; Z79.899 Other long term (current) drug therapy; Z79.4 Long term (current) use of insulin
CPT/HCPCS: 36415; 80053; 82150; 83690; 85025; 86140; 87081; 87430; 87804; 99283; A9270-GY